=== PATIENT | male | born 1940 | race Asian ===

== ENCOUNTER 2017-07-31 09:29 | Inpatient (IN) | payer MEDICARE, OTHER ==
[~2017-07-31] VITALS: Ht 167.6 cm; Wt 74.2 kg
[2017-07-31] VITALS (63 sets, daily range): BP systolic 57–123; BP diastolic 47–81; PULSE 83–119; RESP 14–25; Ht 167.6 cm; Wt 74.2 kg
[2017-07-31] MEDS ORDERED: MIDODRINE 5 MG TAB PO ONE (10:30)
[2017-07-31 10:32] LABS: AADO2 Arterial 288.1 mmHg (7.0-24.0); Allen Test ACCEPTAB; Arterial Base Excess -5.5 mmol/L (-3.0-3); Arterial COHb 0.1 % (0.0-3.0); Arterial Fraction of Oxyhgb 88.5 % (93.0-99.0); Arterial HCO3 23.5 mmol/L (22.0-26.0); Arterial MetHb 0.5 % (0.0-1.5); Arterial Total Hemglobin 10.8 g/dl (12.0-18.0); MODE T-TUBE
[2017-07-31] MEDS ORDERED: NORepinephrine 8MG/250 ML (PMX 250 ML ONE (10:58)
[2017-07-31] MEDS: ALBUMIN HUMAN 25% 100 ML IV SCH ×2 (11:10→18:32)
[2017-07-31] MEDS ORDERED: DEXTROSE 50% 50 ML SYRINGE IV PRN (12:00)
[2017-07-31] MEDS ORDERED: GLUCOSE GEL 15 GRAM TUBE PO PRN ×2 (12:00)
[2017-07-31] MEDS ORDERED: GLUCOSE GEL 15 GRAM TUBE BUCCAL PRN (12:00)
[2017-07-31] MEDS ORDERED: GLUCAGON 1 MG INJ IM PRN (12:00)
--- NOTE | 2017-07-31 12:07 | CONS ---
DATE OF ADMISSION: 07/31/2017 DATE OF CONSULTATION: 07/31/2017 REASON FOR CONSULTATION: Ventilator management. Thank you, Dr. Bonner, for this consultation. HISTORY OF PRESENT ILLNESS: This is a 76-year-old Congolese gentleman transferred from [facility] to [facility] for ventilator weaning. This morning, transferred down from [facility] to [facility] Intensive Care Unit for hemodynamic instability. Here patient has been somnolent on cool aerosol and now requiring to be placed on mechanical ventilation. PAST MEDICAL HISTORY: 1. Coronary artery bypass graft surgery 2000, with subsequent PCI. 2. 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 3. Chronic renal insufficiency. 4. Dysphagia with G-tube. 5. Atrial fibrillation. 6. History of lung metastasis. 7. Prostate cancer. 8. Hepatitis B. 9. Brain aneurysm per chart. MEDICATIONS: Per chart. ALLERGIES: NONE. SOCIAL HISTORY: Ex-smoker. No alcohol. No history of drug use. FAMILY HISTORY: Noncontributory. REVIEW OF SYSTEMS: Twelve point review of systems currently unable to perform. PHYSICAL EXAMINATION: GENERAL APPEARANCE: On examination, chronically ill-appearing gentleman, eyes open, otherwise unresponsive. VITAL SIGNS: Currently afebrile. Temperature 98, pulse is 100, blood pressure 100/40, O2 sat 96 on FiO2 of 50 percent. NECK: Trach site clean. CARDIAC: Sounds S1, S2. No added sounds or murmurs. CHEST: Diminished air entry bilaterally. ABDOMEN: Soft, nontender. No guarding or rebound. EXTREMITIES: No cyanosis, clubbing or edema. NEUROLOGIC: Unable to assess. LABORATORY: ABG: pH 7.17, pCO2 of 65, PO2 of 68. White count was 21.1, hemoglobin 9.5, platelets of 169. BUN 94, creatinine 1.76. Lactic acid 2.3, AST 147, ALT 106, alk phos 502. IMPRESSION: 1. Severe sepsis. 2. Vent-dependent respiratory failure. 3. Hypoxemic hypercapnic respiratory failure. 4. Chronic encephalopathy. 5. History of right pleural effusion, status post thoracentesis. 6. History of lung cancer. 7. History of chordoma, status post resection. PLAN: 1. Continue mechanical ventilation. We will repeat arterial blood gas on current settings. 2. Continue broad-spectrum antibiotics. 3. Palliative care consult as overall prognosis extremely poor, as is quality of life. 4. DVT and GI prophylaxis. Dictated By: Gurwinder Andujar MD /filiberto/humberto /Document#: [id number]
[2017-07-31] MEDS: INSULIN ASPART [NOVOLOG] 3 ML PEN SC SCH ×3 (13:00→21:00)
[2017-07-31 13:29] LABS: ABNORMAL IP MESSAGE 1; BASOPHILS % 0.2 % (0.0-2.0); HEMATOCRIT 29.3 % (42.0-52.0); HEMOGLOBIN 8.7 g/dl (14.0-18.0); LYMPHOCYTES # 0.2 10^3/ul (0.8-2.9); LYMPHOCYTES % 0.7 % (15.0-51.0); MEAN CORPUSCULAR HEMOGLOBIN 24.6 pg (29.0-33.0); MEAN CORPUSCULAR HGB CONC 29.7 g/dl (32.0-37.0); MEAN CORPUSCULAR VOLUME 82.8 fl (82.0-101.0); MEAN PLATELET VOLUME 9.9 fl (7.4-10.4); MONOCYTES % 8.4 % (0.0-11.0); NEUTROPHILS % 88.2 % (39.0-77.0); NUCLEATED RED BLOOD CELLS% 8.4 /100WBC (0.0-0.0); PLATELET COUNT 160 10^3/UL (140-415); POSITIVE DIFF @See below; RED BLOOD COUNT 3.54 10^6/ul (4.70-6.10); RED CELL DISTRIBUTION WIDTH 19.4 % (11.5-14.5); WHITE BLOOD COUNT 23.3 10^3/ul (4.8-10.8)
--- NOTE | 2017-07-31 14:07 | HP ---
Date/Time of Note Date/Time of Note DATE: 07/31/17 TIME: 12:36 Assessment/Plan VTE Prophylaxis VTE Prophylaxis Intervention: other Lines/Catheters IV C[facility]ter Type (from [facility]): Peripheral IV Assessment/Plan Assessment/Plan - Septic shock sec to Severe sepsis. - per ID -Dr Nichols notified - Vent-dependent respiratory failure. - per pulmonary- Dr Andujar notified - Palliative care consult as overall prognosis extremely poor, as is quality of life. - Dr Yen notified - Hypoxemic hypercapnic respiratory failure. - Renal failure, on HD - Nephrology notified - Paroxysmal afib - Cardiology notified -. Chronic encephalopathy. - History of right pleural effusion, status post thoracentesis. - History of lung cancer. - History of chordoma, status post resection. PLAN: - Admit to ICU - Continue mechanical ventilation. We will repeat arterial blood gas on current settings. - Continue broad-spectrum antibiotics. - DVT and GI prophylaxis. HPI/ROS Admit Date/Time Admit Date/Time Jul 31, 2017 at 09:58 ROS Subjective hx not possible: pt critical status Exam/Review of Systems Vital Signs Vitals Vital Signs Date Time Temp Pulse Resp B/P Pulse Ox O2 Delivery O2 Flow Rate FiO2 07/31/17 11:40 97.3 94 14 89/68 95 Mechanical Ventilator 07/31/17 10:42 50 Exam Constitutional: frail, non-verbal Respiratory: diminished breath sounds Gastrointestinal: soft Musculoskeletal: muscle weakness Neurological: unresponsive Medications Medications Current Medications Albumin Human 100 ml @ 100 mls/hr Q8H IV Last administered on 07/31/17t 11:10; Admin Dose 100 MLS/HR; Start 07/31/17 at 10:30; Stop 08/01/17 at 03:29 Norepinephrine (Levophed) 250 ml @ 1.875 mls/ hr TITRATE IV ; Start 07/31/17 at 11:00 Insulin Aspart (Novolog Insulin Pen) NOVOLOG *MILD* ALGORI... Q4 SC ; Start 07/31 at 13:00 Miscellaneous Information 1 ea NOTE XX ; Start 07/31/17 at 12:00 Glucose (Glutose) 15 gm Q15M PRN PO DECREASED GLUCOSE; Start 07/31/17 at 12:00 Glucose (Glutose) 22.5 gm Q15M PRN PO DECREASED GLUCOSE; Start 07/31/17 at 12:00 Dextrose (D50w Syringe) 25 ml Q15M PRN IV DECREASED GLUCOSE; Start 07/31/17 at 12:00 Dextrose (D50w Syringe) 50 ml Q15M PRN IV DECREASED GLUCOSE Last administered on 07/31/17t 11:47; Admin Dose 50 ML; Start 07/31/17 at 12:00 Glucagon (Glucagen) 1 mg Q15M PRN IM DECREASED GLUCOSE; Start 07/31/17 at 12:00 Glucose (Glutose) 15 gm Q15M PRN BUCCAL DECREASED GLUCOSE; Start 07/31/17 at 12: 00 SEGUNDO MOLINA Jul 31, 2017 12:46
[2017-07-31] MEDS: NORepinephrine 8MG/250 ML (PMX 250 ML IV SCH ×2 (15:18→22:06)
--- NOTE | 2017-07-31 15:37 | PN ---
DATE: 07/31/2017 SUBJECTIVE DATA: The patient was transferred to ICU from [place] secondary to septic shock. Currently on Levophed drip. Obtunded, in no distress. Vital Signs: Temperature 97.3, pulse 94, respirations 14, blood pressure 89/68, saturation 95 on vent. WBC today 21.1, H and H 9.5 and 31.4, platelets 169, BUN 94, creatinine 1.76, lactic acid 2.3. MICROBIOLOGY: Urine culture on July 22 was negative. Stool for C. difficile on July 24 came back negative. Previous urine culture on July 15 grew Acinetobacter baumannii and Pseudomonas aeruginosa. INDWELLINGS: Trach, PEG, right femoral Brad catheter with a pigtail. DIAGNOSTICS: Chest x-ray this morning revealed worsening CHF, superimposed pneumonia cannot being excluded. PHYSICAL EXAMINATION: GENERAL: This is a fragile, chronically ill appearing, elderly man, who is obtunded in no distress. HEENT: Head atraumatic, normocephalic. Sclerae anicteric. Buccal mucosa dry. NECK: Supple. Tracheostomy present. CHEST: Rise symmetrical. Breath sounds diminished at the bases. HEART: S1, S2. ABDOMEN: Soft, bowel sounds hypoactive. EXTREMITIES: Cyanotic, mottled SKIN: Again mottled and cyanotic. ASSESSMENT: 1. Severe sepsis with shock. 2. Acute on chronic respiratory failure. 3. Fluid overload and possible healthcare associated pneumonia. 4. Acute on chronic kidney disease. 5. Encephalopathy. 6. Dysphagia. PLAN: We are going to start the patient on IV vancomycin and meropenem. Send blood and urine cultures. Obtain sputum culture. Continue present care. Follow recommendations of consultants. Prognosis is guarded. The patient is DNR status. Dictated By: Barrett Green NP /filiberto/andres /Document#: [id number]
[2017-07-31 15:49] LABS: AADO2 Arterial 208.4 mmHg (7.0-24.0); Allen Test ACCEPTAB; Arterial Base Excess -5.2 mmol/L (-3.0-3); Arterial COHb 0 % (0.0-3.0); Arterial HCO3 20.5 mmol/L (22.0-26.0); Arterial MetHb 0.4 % (0.0-1.5); Arterial Total Hemglobin 9.8 g/dl (12.0-18.0); MODE VENT - AC
--- NOTE | 2017-07-31 16:08 | CONS ---
Date/Time of Note Date/Time of Note DATE: 07/31/17 TIME: 16:02 Assessment/Plan Assessment/Plan Additional Assessment/Plan Patient with patient's her children are out of town. She is prepared for the fact that he is dying, she has been told this before. Her support system is her children but unfortunately they are not available and it does not sound like they are able to travel. Has a strong believe that he will never leave her even after his . She gave me a long history of their life together, that he is a very talented individual living in a good father. At this time she made very clear she does not want to have cardiopulmonary resuscitation but she does not want comfort measures at this time. We will continue to support her decision and follow his clinical condition, I will speak to her later today or tomorrow morning. Consultation Date/Type/Reason Admit Date/Time Jul 31, 2017 at 09:58 Reason for Consultation 76-year-old gentleman who was transferred to the intensive care unit [facility] with deteriorating mental status, hypotension hypoxic respiratory failure the patient was a resident of [facility] until he became unstable and was transferred to intensive care unit. She is chronically trached and pegd. From the medical records taste from patient's chart he also has history of lung nodules presumed to be lung cancer, history of prostate cancer and encephalopathy. His information is taken from patient's medical records as well as speaking to his . Exam/Review of Systems Vital Signs Vitals Vital Signs Date Time Temp Pulse Resp B/P Pulse Ox O2 Delivery O2 Flow Rate FiO2 07/31/17 14:45 95 16 95/75 100 07/31/17 14:00 Mechanical Ventilator 07/31/17 13:12 50 07/31/17 11:40 97.3 Exam Constitutional: non-verbal Neurological: other (Not communicative no spontaneous movements nonresponsive to any verbal or tactile stimulation), unresponsive Results Result Diagram: 07/31/17 1213 Results 24 hrs Laboratory Tests Test 07/31/17 10:23 07/31/17 11:56 07/31/17 12:13 07/31/17 12:34 Blood Gas Specimen Source Blood arterial Arterial Blood Date Drawn 07/31/2017 10:20:42 AM Arterial Blood pH (Temp corrected) 7.176 *L Arterial Blood pCO2 (Temp correct) 65.1 H Arterial Blood pO2 (Temp corrected) 68.1 L Arterial Blood HCO3 23.5 Arterial Blood Base Excess -5.5 L Arterial Blood Oxygen Saturation 89.0 L Cholo Test ACCEPTAB Arterial Blood Gas Puncture Site Left Radial Arterial Blood Carboxyhemoglobin 0.1 Arterial Blood Methemoglobin 0.5 Blood Gas A-a O2 Differential 288.1 H Oxyhemoglobin Percent 88.5 L Total Hemoglobin 10.8 L Blood Gas Temperature 37.0 Blood Gas Modality T-TUBE FiO2 60.0 Blood Gas Critical Value Read Back DR ANGULO Blood Gas Notified Whom RUSSD Blood Gas Notified Time 07/31/2017 10:32:19 AM Bedside Glucose 142 129 White Blood Count 23.3 H Red Blood Count 3.54 L Hemoglobin 8.7 L Hematocrit 29.3 L Mean Corpuscular Volume 82.8 Mean Corpuscular Hemoglobin 24.6 L Mean Corpuscular Hemoglobin Concent 29.7 L Red Cell Distribution Width 19.4 H Platelet Count 160 Mean Platelet Volume 9.9 Neutrophils % 88.2 H Lymphocytes % 0.7 L Monocytes % 8.4 Eosinophils % 0.0 Basophils % 0.2 Nucleated Red Blood Cells % 8.4 H Neutrophils # (Manual) 20.6 H Lymphocytes # 0.2 L Monocytes # 2.0 H Eosinophils # 0.0 Basophils # 0.0 Nucleated Red Blood Cells # 2.0 H Test 07/31/17 13:53 07/31/17 15:00 Bedside Glucose 102 Blood Gas Specimen Source Blood arterial Arterial Blood Date Drawn 07/31/2017 3:38:37 PM Arterial Blood pH (Temp corrected) 7.322 L Arterial Blood pCO2 (Temp correct) 40.5 Arterial Blood pO2 (Temp corrected) 102.5 H Arterial Blood HCO3 20.5 L Arterial Blood Base Excess -5.2 L Arterial Blood Oxygen Saturation 97.4 Cholo Test ACCEPTAB Arterial Blood Gas Puncture Site Right Radial Arterial Blood Carboxyhemoglobin 0 Arterial Blood Methemoglobin 0.4 Blood Gas A-a O2 Differential 208.4 H Oxyhemoglobin Percent 97.0 Total Hemoglobin 9.8 L Blood Gas Temperature 37.0 Blood Gas Respiration Rate 14.0 Blood Gas Actual Respiration Rate 15 Blood Gas Modality VENT - AC FiO2 50.0 Blood Gas Tidal Volume 500.0 Blood Gas Low PEEP Setting 5.0 Blood Gas Notified Whom Shahzad Blood Gas Notified Time 07/31/2017 3:48:45 PM Medications Medications Current Medications Albumin Human 100 ml @ 100 mls/hr Q8H IV Last administered on 07/31/17 11:10; Admin Dose 100 MLS/HR; Start 07/31/17 at 10:30; Stop 08/01/17 at 03:29 Norepinephrine (Levophed) 250 ml @ 1.875 mls/ hr TITRATE IV Last administered on 07/31/17 15:18; Admin Dose 22.5 MLS/HR; Start 07/31/17 at 11:00 Insulin Aspart (Novolog Insulin Pen) NOVOLOG *MILD* ALGORI... Q4 SC ; Start 07/31 at 13:00 Miscellaneous Information 1 ea NOTE XX ; Start 07/31/17 at 12:00 Glucose (Glutose) 15 gm Q15M PRN PO DECREASED GLUCOSE; Start 07/31/17 at 12:00 Glucose (Glutose) 22.5 gm Q15M PRN PO DECREASED GLUCOSE; Start 07/31/17 at 12:00 Dextrose (D50w Syringe) 25 ml Q15M PRN IV DECREASED GLUCOSE; Start 07/31/17 at 12:00 Dextrose (D50w Syringe) 50 ml Q15M PRN IV DECREASED GLUCOSE Last administered on 07/31/17 11:47; Admin Dose 50 ML; Start 07/31/17 at 12:00 Glucagon (Glucagen) 1 mg Q15M PRN IM DECREASED GLUCOSE; Start 07/31/17 at 12:00 Glucose (Glutose) 15 gm Q15M PRN BUCCAL DECREASED GLUCOSE; Start 07/31/17 at 12: 00 KASIA ACEVEDO Jul 31, 2017 16:08
[2017-07-31] MEDS ORDERED: ERTA1VIA IV (16:45)
[2017-07-31] MEDS ORDERED: NEPH PEG (16:56)
[2017-07-31] MEDS ORDERED: LEVEM SC (16:56)
[2017-07-31] MEDS ORDERED: VANC1PLA9 IV (16:56)
[2017-07-31] MEDS ORDERED: HYDR-3670 IV (16:56)
[2017-07-31] MEDS ORDERED: LANS30CA PO (16:56)
[2017-07-31] MEDS ORDERED: SSD1C20 TOP (16:56)
[2017-07-31] MEDS ORDERED: CHLO473M4 MM (16:56)
[2017-07-31] MEDS ORDERED: HYDR-906 PO (16:56)
[2017-07-31] MEDS ORDERED: [UNRECOGNIZED DRUG - CODE] PEG (16:56)
[2017-07-31] MEDS ORDERED: NYST1POW22 TOPICAL (16:56)
[2017-07-31] MEDS ORDERED: LINA5TAB PEG (16:56)
[2017-07-31] MEDS ORDERED: BALS60OI TOP (16:56)
[2017-07-31] MEDS ORDERED: MORP1DIS4 IV (16:56)
[2017-07-31] MEDS ORDERED: LEVA0.6320 INHALATION (16:56)
[2017-07-31] MEDS ORDERED: LIDO700A6 TP (16:56)
[2017-07-31] MEDS ORDERED: METO-448 PEG (16:56)
--- NOTE | 2017-07-31 17:17 | CONS ---
Date/Time of Note Date/Time of Note DATE: 07/31/17 TIME: 17:09 Assessment/Plan Assessment/Plan Problems: (1) Type 2 diabetes mellitus without complications Status: Chronic Comment: At this time patient is n.p.o. status. He may also have sepsis. Because of these things he is not appearing to require his chronic twice daily insulin. He is currently maintaining his blood glucose levels in the goal range without it. He is written for correctional insulin only. At this time I am going to change my follow-up to as needed only. I will check levels daily. If blood glucose levels rise then will return to follow the patient and resume a twice daily insulin schedule. Alternatively as the patient is ill in the ICU patient may go on an insulin drip intravenously if his blood glucose elevates. Will follow peripherally for now. 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 Patient has been undergoing treatment at [facility]. I have been involved in his case to manage his blood glucose levels throughout his last 2 stays there. Blood glucose was relatively well controlled with some mild highs recently. This a.m. patient became unstable with low blood pressure and low glucose. Twice daily Levemir was held this morning and patient was transferred to [facility] intensive care unit for ongoing care and IV pressor therapy. Subjective hx not possible: pt non-verbal, pt critical status Past Medical History Medical History: cancer (prostate, chordoma), diabetes, high cholesterol, hypertension, renal disease Past Surgical History Past Surgical Hx: other (Tracheostomy and percutaneous gastrostomy tubing) Family History Significant Family History: no pertinent family hx Social History Alcohol Use: none Smoking Status: Never smoker Drug Use: none Exam/Review of Systems Vital Signs Vitals Vital Signs Date Time Temp Pulse Resp B/P Pulse Ox O2 Delivery O2 Flow Rate FiO2 07/31/17 15:43 109 15 100 50 07/31/17 14:45 95/75 07/31/17 14:00 Mechanical Ventilator 07/31/17 11:40 97.3 Exam Constitutional: frail, No alert Psych: nl mood/affect, no complaints Eyes: EOMI, PERRL, nl conjunctiva, nl lids, nl sclera ENMT: mucosa pink and moist, nl external ears & nose Neck: No other (Tracheostomy on vent) Respiratory: clear to auscultation, normal air movement Cardiovascular: irregular rhythm (And tachycardic), nl pulses, No edema, No murmurs/extra sounds, No regular rate and rhythm, No rub Gastrointestinal: bowel sounds, nl liver, spleen, non-tender, soft, No mass, No rebound or guarding Musculoskeletal: nl extremities to inspection Extremities: No clubbing, No cyanosis, No edema Neurological: unresponsive Additional Comments Bedside Glucose - 72 Hours Test 07/31/17 11:56 07/31/17 12:34 07/31/17 13:53 Bedside Glucose 142mg/dL (70-220) 129mg/dL (70-220) 102mg/dL (70-220) Results Result Diagram: 07/31/17 1213 Results 24 hrs Laboratory Tests Test 07/31/17 10:23 07/31/17 11:56 07/31/17 12:13 07/31/17 12:34 Blood Gas Specimen Source Blood arterial Arterial Blood Date Drawn 07/31/2017 10:20:42 AM Arterial Blood pH (Temp corrected) 7.176 *L Arterial Blood pCO2 (Temp correct) 65.1 H Arterial Blood pO2 (Temp corrected) 68.1 L Arterial Blood HCO3 23.5 Arterial Blood Base Excess -5.5 L Arterial Blood Oxygen Saturation 89.0 L Cholo Test ACCEPTAB Arterial Blood Gas Puncture Site Left Radial Arterial Blood Carboxyhemoglobin 0.1 Arterial Blood Methemoglobin 0.5 Blood Gas A-a O2 Differential 288.1 H Oxyhemoglobin Percent 88.5 L Total Hemoglobin 10.8 L Blood Gas Temperature 37.0 Blood Gas Modality T-TUBE FiO2 60.0 Blood Gas Critical Value Read Back DR ANGULO Blood Gas Notified Whom RAMU Blood Gas Notified Time 07/31/2017 10:32:19 AM Bedside Glucose 142 129 White Blood Count 23.3 H Red Blood Count 3.54 L Hemoglobin 8.7 L Hematocrit 29.3 L Mean Corpuscular Volume 82.8 Mean Corpuscular Hemoglobin 24.6 L Mean Corpuscular Hemoglobin Concent 29.7 L Red Cell Distribution Width 19.4 H Platelet Count 160 Mean Platelet Volume 9.9 Neutrophils % 88.2 H Lymphocytes % 0.7 L Monocytes % 8.4 Eosinophils % 0.0 Basophils % 0.2 Nucleated Red Blood Cells % 8.4 H Neutrophils # (Manual) 20.6 H Lymphocytes # 0.2 L Monocytes # 2.0 H Eosinophils # 0.0 Basophils # 0.0 Nucleated Red Blood Cells # 2.0 H Test 07/31/17 13:53 07/31/17 15:00 Bedside Glucose 102 Blood Gas Specimen Source Blood arterial Arterial Blood Date Drawn 07/31/2017 3:38:37 PM Arterial Blood pH (Temp corrected) 7.322 L Arterial Blood pCO2 (Temp correct) 40.5 Arterial Blood pO2 (Temp corrected) 102.5 H Arterial Blood HCO3 20.5 L Arterial Blood Base Excess -5.2 L Arterial Blood Oxygen Saturation 97.4 Cholo Test ACCEPTAB Arterial Blood Gas Puncture Site Right Radial Arterial Blood Carboxyhemoglobin 0 Arterial Blood Methemoglobin 0.4 Blood Gas A-a O2 Differential 208.4 H Oxyhemoglobin Percent 97.0 Total Hemoglobin 9.8 L Blood Gas Temperature 37.0 Blood Gas Respiration Rate 14.0 Blood Gas Actual Respiration Rate 15 Blood Gas Modality VENT - AC FiO2 50.0 Blood Gas Tidal Volume 500.0 Blood Gas Low PEEP Setting 5.0 Blood Gas Notified Whom M.D. Blood Gas Notified Time 07/31/2017 3:48:45 PM Medications Medications Current Medications Albumin Human 100 ml @ 100 mls/hr Q8H IV Last administered on 07/31/17 11:10; Admin Dose 100 MLS/HR; Start 07/31/17 at 10:30; Stop 08/01/17 at 03:29 Norepinephrine (Levophed) 250 ml @ 1.875 mls/ hr TITRATE IV Last administered on 07/31/17 15:18; Admin Dose 22.5 MLS/HR; Start 07/31/17 at 11:00 Insulin Aspart (Novolog Insulin Pen) NOVOLOG *MILD* ALGORI... Q4 SC ; Start 07/31 at 13:00 Miscellaneous Information 1 ea NOTE XX ; Start 07/31/17 at 12:00 Glucose (Glutose) 15 gm Q15M PRN PO DECREASED GLUCOSE; Start 07/31/17 at 12:00 Glucose (Glutose) 22.5 gm Q15M PRN PO DECREASED GLUCOSE; Start 07/31/17 at 12:00 Dextrose (D50w Syringe) 25 ml Q15M PRN IV DECREASED GLUCOSE; Start 07/31/17 at 12:00 Dextrose (D50w Syringe) 50 ml Q15M PRN IV DECREASED GLUCOSE Last administered on 07/31/17t 11:47; Admin Dose 50 ML; Start 07/31/17 at 12:00 Glucagon (Glucagen) 1 mg Q15M PRN IM DECREASED GLUCOSE; Start 07/31/17 at 12:00 Glucose (Glutose) 15 gm Q15M PRN BUCCAL DECREASED GLUCOSE; Start 07/31/17 at 12: 00 JUAN FRANCISCO HILLMAN MD Jul 31, 2017 17:17
[2017-07-31] MEDS ORDERED: VANCOMYCIN IV PER PHARMACY XX SCH (17:30)
--- NOTE | 2017-07-31 18:50 | CONS ---
Date/Time of Note Date/Time of Note DATE: 07/31/17 TIME: 18:34 Assessment/Plan Assessment/Plan Chief Complaint/Hosp Course 1. septic shock 2. hypoxemic resp failure s/p trach, vent dependent. 3. P afib; currently in NSR. 4. HX NSVT 5 LUIS FELIPE on CKD: S/P HD 6. CAD 7. HX PCI 8. HX CABG 9. ANEMIA 10 HX GI BLEED AND PUD 11. recurrent pleural effusion. 12. encephalopahty Recommendations: Broad-spectrum antibiotics to be continued and will be managed by ID team. We will continue to monitor on telemetry closely. At this point he is too hypotensive to tolerate any beta blockers. DIGOXIN will be given as very low- dose if needed Hemodialysis as per renal team. We will continue with the Levophed drip. Off of aspirin or Coumadin or high anticoagulant due to history of GI bleed at this point. PPI Vent support will be continued and managed as per pulmonary team. Continue with the trach care. Continue with ICU care. CODE STATUS has been discussed with the family including and has been changed to DNR at this point. More than 42 minutes of critical care time was spent in management and treatment of this patient excluding any procedures. Thank you for his referral. We will continue to follow along with you. ARMANDO DAVIDSON MD [facility] Problems: Consultation Date/Type/Reason Admit Date/Time Jul 31, 2017 at 09:58 Date of Consultation: Jul 31, 2017 Type of Consultation: Cardiology/ Critical care Reason for Consultation shock, P afib. Referring Provider: SEGUNDO MOLINA of Present Illness CC: shock. HPI: Dear Dr Bonner and Mahi thank you for this consultation, History was obtained mostly from extensive review of the old chart discussion with physicians and staff and discussion with the patient and . Patient also very well known to me from previous admission to the [facility]. This is an unfortunate 76-year-old gentleman with multiple complicated medical history including history of coronary artery disease who was transferred from [facility] to ICU because of the low blood pressure shock. Patient is currently status post tracheostomy on the vent and is on Levophed drip. Over the past few days patient has been progressively getting worse and hypotensive. He has become very hypotensive yesterday and today finally to be transferred to ICU on Levophed drip. Currently he is on 12 mics of Levophed drip. Patient at this point is lethargic is unable to provide any history to me. Allergies to contrast dye penicillin Neupogen reportedly. Medications: As per medical reconciliation sheet which was personally reviewed. Past medical history: 1. History of extensive coronary artery disease including coronary artery bypass grafting October 2001. History of PCI a few years ago. 2. 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 He has also undergone subtotal resection of the anterior cervical chordoma on May 04. At that time he has had a complicated course including intubation and reintubation had to be finally tracheostomy done in May 14, 2017. 3. History of renal failure acute on chronic currently on dialysis 4. History of severe anemia and GI bleed due to peptic ulcer disease. Is currently off of any anticoagulant relation or antiplatelet this biopsied atrial fibrillation and coronary artery disease because of that. Also family has been refusing it is felt. 5. History of paroxysmal atrial fibrillation. Also he has had multiple doses of nonsustained VT. 6. Anemia. 7. History of prostate cancer reprieve and prostatectomy 8. History hepatitis B positive 9. Hypoxemic respiratory failure with tracheostomy now dysphagia status post G- tube placement 10. History of brain aneurysm embolization per review of the old chart. 11. History of recurrent pleural effusion status post chest tube placed pain. Surgical history: tracheostomy. G-tube placement. Coronary bypass graft PCI Surgery Multiple surgeries for cervical chordoma resection Family history: Patient father had heart disease detail is not clear though. Social history: Patient has quit smoking many years ago. He does not drink use any drugs. 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 ROS: Patient has been in the hospital over the past few months. Otherwise see above Psychological: nl mood/affect, no complaints Past Medical History Medical History: cancer (prostate, chordoma), diabetes, high cholesterol, hypertension, renal disease Past Surgical History Past Surgical Hx: other (Tracheostomy and percutaneous gastrostomy tubing) Social History Alcohol Use: none Smoking Status: Former smoker Drug Use: none Exam/Review of Systems Vital Signs Vitals Vital Signs Date Time Temp Pulse Resp B/P Pulse Ox O2 Delivery O2 Flow Rate FiO2 07/31/17 17:08 91 16 100 50 07/31/17 14:45 95/75 07/31/17 14:00 Mechanical Ventilator 07/31/17 11:40 97.3 Exam General: Cachectic gentleman status post tracheostomy on the vent. CV: Regular rate and rhythm with systolic murmur. HEENT: Cephalic atraumatic. Pupils are equal round. Neck: Status post tracheostomy. No stridors. Pulmonary: Bilateral rhonchi noted. No wheezing. GI: Soft status post PEG placement. No rebound or guarding. Extremities: Severe lower extremity edema. NEURO: Lethargic and drowsy at this point. Is able to move all of his extremities though. Psych: Appear to be depressed mood but very pleasant Derm: Positive sacral decubitus ulcer. echo 06/26/17 was personally reviewed; 1. Normal left ventricular systolic function. Normal left ventricular cavity size. Moderate concentric left ventricular hypertrophy. Ejection fraction is visually estimated at 55 %. Abnormal Diastolic Function. 2. Severe right ventricular systolic dysfunction. Moderate enlargement of right ventricle. 3. There is moderate enlargement of right atrium. 4. Normal appearance and function of the mitral valve with trace physiologic regurgitation. 5. Normal appearance of the aortic valve. No significant aortic stenosis or insufficiency. 6. Normal appearance of the tricuspid valve. Estimated peak PA systolic pressure 56 mmHg. There is mild tricuspid regurgitation. 7. Inferior vena cava without respiratory collapse, however, patient on ventilator. Results Result Diagram: 07/31/17 1213 Results 24 hrs Laboratory Tests Test 07/31/17 10:23 07/31/17 11:56 07/31/17 12:13 07/31/17 12:34 Blood Gas Specimen Source Blood arterial Arterial Blood Date Drawn 07/31/2017 10:20:42 AM Arterial Blood pH (Temp corrected) 7.176 *L Arterial Blood pCO2 (Temp correct) 65.1 H Arterial Blood pO2 (Temp corrected) 68.1 L Arterial Blood HCO3 23.5 Arterial Blood Base Excess -5.5 L Arterial Blood Oxygen Saturation 89.0 L Cholo Test ACCEPTAB Arterial Blood Gas Puncture Site Left Radial Arterial Blood Carboxyhemoglobin 0.1 Arterial Blood Methemoglobin 0.5 Blood Gas A-a O2 Differential 288.1 H Oxyhemoglobin Percent 88.5 L Total Hemoglobin 10.8 L Blood Gas Temperature 37.0 Blood Gas Modality T-TUBE FiO2 60.0 Blood Gas Critical Value Read Back DR ANGULO Blood Gas Notified Whom RAMU Blood Gas Notified Time 07/31/2017 10:32:19 AM Bedside Glucose 142 129 White Blood Count 23.3 H Red Blood Count 3.54 L Hemoglobin 8.7 L Hematocrit 29.3 L Mean Corpuscular Volume 82.8 Mean Corpuscular Hemoglobin 24.6 L Mean Corpuscular Hemoglobin Concent 29.7 L Red Cell Distribution Width 19.4 H Platelet Count 160 Mean Platelet Volume 9.9 Neutrophils % 88.2 H Lymphocytes % 0.7 L Monocytes % 8.4 Eosinophils % 0.0 Basophils % 0.2 Nucleated Red Blood Cells % 8.4 H Neutrophils # (Manual) 20.6 H Lymphocytes # 0.2 L Monocytes # 2.0 H Eosinophils # 0.0 Basophils # 0.0 Nucleated Red Blood Cells # 2.0 H Test 07/31/17 13:53 07/31/17 15:00 Bedside Glucose 102 Blood Gas Specimen Source Blood arterial Arterial Blood Date Drawn 07/31/2017 3:38:37 PM Arterial Blood pH (Temp corrected) 7.322 L Arterial Blood pCO2 (Temp correct) 40.5 Arterial Blood pO2 (Temp corrected) 102.5 H Arterial Blood HCO3 20.5 L Arterial Blood Base Excess -5.2 L Arterial Blood Oxygen Saturation 97.4 Cholo Test ACCEPTAB Arterial Blood Gas Puncture Site Right Radial Arterial Blood Carboxyhemoglobin 0 Arterial Blood Methemoglobin 0.4 Blood Gas A-a O2 Differential 208.4 H Oxyhemoglobin Percent 97.0 Total Hemoglobin 9.8 L Blood Gas Temperature 37.0 Blood Gas Respiration Rate 14.0 Blood Gas Actual Respiration Rate 15 Blood Gas Modality VENT - AC FiO2 50.0 Blood Gas Tidal Volume 500.0 Blood Gas Low PEEP Setting 5.0 Blood Gas Notified Whom Shahzad Blood Gas Notified Time 07/31/2017 3:48:45 PM Medications Medications Current Medications Albumin Human 100 ml @ 100 mls/hr Q8H IV Last administered on 07/31/17 18:32; Admin Dose 100 MLS/HR; Start 07/31/17 at 10:30; Stop 08/01/17 at 03:29 Norepinephrine (Levophed) 250 ml @ 1.875 mls/ hr TITRATE IV Last administered on 07/31/17 15:18; Admin Dose 22.5 MLS/HR; Start 07/31/17 at 11:00 Insulin Aspart (Novolog Insulin Pen) NOVOLOG *MILD* ALGORI... Q4 SC ; Start 07/31 at 13:00 Miscellaneous Information 1 ea NOTE XX ; Start 07/31/17 at 12:00 Glucose (Glutose) 15 gm Q15M PRN PO DECREASED GLUCOSE; Start 07/31/17 at 12:00 Glucose (Glutose) 22.5 gm Q15M PRN PO DECREASED GLUCOSE; Start 07/31/17 at 12:00 Dextrose (D50w Syringe) 25 ml Q15M PRN IV DECREASED GLUCOSE; Start 07/31/17 at 12:00 Dextrose (D50w Syringe) 50 ml Q15M PRN IV DECREASED GLUCOSE Last administered on 07/31/17t 11:47; Admin Dose 50 ML; Start 07/31/17 at 12:00 Glucagon (Glucagen) 1 mg Q15M PRN IM DECREASED GLUCOSE; Start 07/31/17 at 12:00 Glucose 15 gm 15 gm Q15M PRN BUCCAL DECREASED GLUCOSE; Start 07/31/17 at 12:00 Meropenem/Sodium Chloride (Merrem 500mg/50 ml(Pmx)) 50 ml @ 100 mls/hr Q12 IVPB ; Start 07/31/17 at 21:00 ARMANDO DAVIDSON MD Jul 31, 2017 18:45
[2017-07-31] MEDS: DEXTROSE 50% 50 ML SYRINGE IV PRN (21:27)
[2017-07-31] MEDS: MEROPENEM 500MG/50 ML (PMX) 50 ML IVPB SCH (21:27)
--- NOTE | 2017-07-31 21:27 | CONS ---
Date/Time of Note Date/Time of Note DATE: 07/31/17 TIME: 20:27 Assessment/Plan Assessment/Plan Additional Assessment/Plan 1. acute on chronic renal failure, started on HD 2. septic shock 3. CHF 3. Pleural effusion Right moderate Pleural effusion 4. Cardiomyopathy 5, Hypertension 6. Hyperlipidemia Plan : levophed for BP support IV abx as per ID Endocrinology following I will give albumin 25% 100ml IV x 1 , midodrine 5 mg po x 1 dose for bP support Thanks for consultation, will follow up Consultation Date/Type/Reason Admit Date/Time Jul 31, 2017 at 09:58 Date of Consultation: Jul 31, 2017 Type of Consultation: NEPHROLOGY Reason for Consultation acute on chronic renal failure, progressively worsened started on HD, septic shock Referring Provider: GUSTAVO MCCARTY MD Hx of Present Illness 76-year-old unfortunate Faro[place] male with a history of type 2 diabetes mellitus , hypertension, prostate cancer, recently diagnosed with malignant chordoma of the cervical spine resulting in respiratory failure with chronic tracheostomy usage and dysphagia requiring gastrostomy tube feeding, and chronic kidney disease recently end-stage. Patient has been undergoing treatment at [facility]. He was started on HD fur acute on chronic renal failure, gradually worsening. he becomes hypotensive today, his HD was cancelled for today and he gets transferred to [facility] ICU unit for further care. Subjective hx not possible: pt non-verbal Psychological: nl mood/affect, no complaints Past Medical History Medical History: cancer (prostate, chordoma), diabetes, high cholesterol, hypertension, renal disease Past Surgical History Past Surgical Hx: other (Tracheostomy and percutaneous gastrostomy tubing) Family History Significant Family History: no pertinent family hx Social History Alcohol Use: none Smoking Status: Former smoker Drug Use: none Exam/Review of Systems Vital Signs Vitals Vital Signs Date Time Temp Pulse Resp B/P Pulse Ox O2 Delivery O2 Flow Rate FiO2 07/31/17 18:30 89 18 115/69 100 07/31/17 18:00 Mechanical Ventilator 07/31/17 17:08 50 07/31/17 16:00 97.8 Exam Constitutional: non-verbal Head: normocephalic ENMT: other (+ tracheostomy on ventilator ) Neck: other (no JVD, no LAD ), supple Respiratory: congested cough, crackles/rales, diminished breath sounds, wheezing Cardiovascular: other (tachycardia), regular rate and rhythm Gastrointestinal: non-tender, other (G tube in place ), soft Musculoskeletal: muscle tone, muscle weakness, swelling Neurological: other Results Result Diagram: 07/31/17 1213 Results 24 hrs Laboratory Tests Test 07/31/17 10:23 07/31/17 11:56 07/31/17 12:13 07/31/17 12:34 Blood Gas Specimen Source Blood arterial Arterial Blood Date Drawn 07/31/2017 10:20:42 AM Arterial Blood pH (Temp corrected) 7.176 *L Arterial Blood pCO2 (Temp correct) 65.1 H Arterial Blood pO2 (Temp corrected) 68.1 L Arterial Blood HCO3 23.5 Arterial Blood Base Excess -5.5 L Arterial Blood Oxygen Saturation 89.0 L Cholo Test ACCEPTAB Arterial Blood Gas Puncture Site Left Radial Arterial Blood Carboxyhemoglobin 0.1 Arterial Blood Methemoglobin 0.5 Blood Gas A-a O2 Differential 288.1 H Oxyhemoglobin Percent 88.5 L Total Hemoglobin 10.8 L Blood Gas Temperature 37.0 Blood Gas Modality T-TUBE FiO2 60.0 Blood Gas Critical Value Read Back DR ANGULO Blood Gas Notified Whom JLD Blood Gas Notified Time 07/31/2017 10:32:19 AM Bedside Glucose 142 129 White Blood Count 23.3 H Red Blood Count 3.54 L Hemoglobin 8.7 L Hematocrit 29.3 L Mean Corpuscular Volume 82.8 Mean Corpuscular Hemoglobin 24.6 L Mean Corpuscular Hemoglobin Concent 29.7 L Red Cell Distribution Width 19.4 H Platelet Count 160 Mean Platelet Volume 9.9 Neutrophils % 88.2 H Lymphocytes % 0.7 L Monocytes % 8.4 Eosinophils % 0.0 Basophils % 0.2 Nucleated Red Blood Cells % 8.4 H Neutrophils # (Manual) 20.6 H Lymphocytes # 0.2 L Monocytes # 2.0 H Eosinophils # 0.0 Basophils # 0.0 Nucleated Red Blood Cells # 2.0 H Test 07/31/17 13:53 07/31/17 15:00 07/31/17 18:30 Bedside Glucose 102 86 Blood Gas Specimen Source Blood arterial Arterial Blood Date Drawn 07/31/2017 3:38:37 PM Arterial Blood pH (Temp corrected) 7.322 L Arterial Blood pCO2 (Temp correct) 40.5 Arterial Blood pO2 (Temp corrected) 102.5 H Arterial Blood HCO3 20.5 L Arterial Blood Base Excess -5.2 L Arterial Blood Oxygen Saturation 97.4 Cholo Test ACCEPTAB Arterial Blood Gas Puncture Site Right Radial Arterial Blood Carboxyhemoglobin 0 Arterial Blood Methemoglobin 0.4 Blood Gas A-a O2 Differential 208.4 H Oxyhemoglobin Percent 97.0 Total Hemoglobin 9.8 L Blood Gas Temperature 37.0 Blood Gas Respiration Rate 14.0 Blood Gas Actual Respiration Rate 15 Blood Gas Modality VENT - AC FiO2 50.0 Blood Gas Tidal Volume 500.0 Blood Gas Low PEEP Setting 5.0 Blood Gas Notified Whom M.D. Blood Gas Notified Time 07/31/2017 3:48:45 PM Medications Medications Current Medications Albumin Human 100 ml @ 100 mls/hr Q8H IV Last administered on 07/31/17 18:32; Admin Dose 100 MLS/HR; Start 07/31/17 at 10:30; Stop 08/01/17 at 03:29 Norepinephrine (Levophed) 250 ml @ 1.875 mls/ hr TITRATE IV Last administered on 07/31/17 15:18; Admin Dose 22.5 MLS/HR; Start 07/31/17 at 11:00 Insulin Aspart (Novolog Insulin Pen) NOVOLOG *MILD* ALGORI... Q4 SC ; Start 07/31 at 13:00 Miscellaneous Information 1 ea NOTE XX ; Start 07/31/17 at 12:00 Glucose (Glutose) 15 gm Q15M PRN PO DECREASED GLUCOSE; Start 07/31/17 at 12:00 Glucose (Glutose) 22.5 gm Q15M PRN PO DECREASED GLUCOSE; Start 07/31/17 at 12:00 Dextrose (D50w Syringe) 25 ml Q15M PRN IV DECREASED GLUCOSE; Start 07/31/17 at 12:00 Dextrose (D50w Syringe) 50 ml Q15M PRN IV DECREASED GLUCOSE Last administered on 07/31/17 11:47; Admin Dose 50 ML; Start 07/31/17 at 12:00 Glucagon (Glucagen) 1 mg Q15M PRN IM DECREASED GLUCOSE; Start 07/31/17 at 12:00 Glucose 15 gm 15 gm Q15M PRN BUCCAL DECREASED GLUCOSE; Start 07/31/17 at 12:00 Meropenem/Sodium Chloride (Merrem 500mg/50 ml(Pmx)) 50 ml @ 100 mls/hr Q12 IVPB ; Start 07/31/17 at 21:00 Pantoprazole (Protonix Tab) 40 mg DAILY@06 PO ; Start 08/01/17 at 06:00 MAXIM VILLAVICENCIO MD Jul 31, 2017 20:37
[2017-08-01] VITALS (100 sets, daily range): BP systolic 67–134; BP diastolic 42–103; PULSE 90–137; RESP 16–31
[2017-08-01] MEDS: INSULIN ASPART [NOVOLOG] 3 ML PEN SC SCH ×6 (01:00→21:00)
[2017-08-01] MEDS: DEXTROSE 50% 50 ML SYRINGE IV PRN ×2 (01:23→13:14)
[2017-08-01] MEDS: ALBUMIN HUMAN 25% 100 ML IV SCH (02:38)
[2017-08-01 04:53] LABS: ALBUMIN 3.3 g/dl (3.3-4.9); ALBUMIN/GLOBULIN RATIO 1.26; BILIRUBIN,DIRECT 1.3 mg/dl (0.00-0.20); BILIRUBIN,INDIRECT 0.5 mg/dl (0-1.1); BILIRUBIN,TOTAL 1.8 mg/dl (0.2-1.3); CALCIUM 7.9 mg/dl (8.4-10.2); CREATININE 2.33 mg/dl (0.61-1.24); POTASSIUM 4.7 mmol/L (3.5-5.1); TOTAL PROTEIN 5.9 g/dl (6.1-8.1)
[2017-08-01] MEDS: PANTOPRAZOLE (EC) 40 MG TAB PO SCH (05:32)
--- NOTE | 2017-08-01 07:39 | RADRPT ---
PROCEDURE: XR Chest. CLINICAL INDICATION: Shortness of breath. TECHNIQUE: Single frontal view. COMPARISON: 07/31/2017. FINDINGS: The tracheostomy tube remains in satisfactory position. Pulmonary edema is unchanged. The heart is enlarged. There is calcification in the aorta consistent with atherosclerosis. There ar e sternal wires and mediastinal clips. There is a moderate right pleural effusion and small left pleural effusion, unchanged. There is no pneumothorax. IMPRESSION: 1. No change from 07/31/2017. RPTAT: QQ .Jim Bhat MD, MD Date Time Electronically viewed and signed by .Jim Bhat MD, MD on 08/01/2017 07:39 .R/
--- NOTE | 2017-08-01 09:54 | CONS ---
Date/Time of Note Date/Time of Note DATE: 08/01/17 TIME: 09:52 Consult Date/Type/Reason Admit Date/Time Jul 31, 2017 at 09:58 Initial Consult Date 07/31/17 Type of Consultation: Pulmonary Ordering Provider: GUSTAVO MCCARTY MD Subjective More alert this morning. Continues vasopressor support. Just completed hemodialysis. Objective Vital Signs Date Time Temp Pulse Resp B/P Pulse Ox O2 Delivery O2 Flow Rate FiO2 08/01/17 08:00 97.3 123 20 117/81 100 Mechanical Ventilator 08/01/17 05:35 50 Intake and Output 07/31/17 07/31/17 08/01/17 15:00 23:00 07:00 Intake Total 259.375 ml 187.4 ml 190.04 ml Output Total 0 ml 25 ml Balance 259.375 ml 187.4 ml 165.04 ml Exam PHYSICAL EXAMINATION: GENERAL APPEARANCE: On examination, chronically ill-appearing gentleman, eyes open, VITAL SIGNS: NECK: Trach site clean. CARDIAC: Sounds S1, S2. No added sounds or murmurs. CHEST: Diminished air entry bilaterally. ABDOMEN: Soft, nontender. No guarding or rebound. EXTREMITIES: No cyanosis, clubbing, edema +1 NEUROLOGIC: Unable to assess. Results/Medications Result Diagram: 07/31/17 1213 08/01/17 0350 Results 24 hrs Laboratory Tests Test 07/31/17 10:23 07/31/17 11:56 07/31/17 12:13 07/31/17 12:34 Blood Gas Specimen Source Blood arterial Arterial Blood Date Drawn 07/31/2017 10:20:42 AM Arterial Blood pH (Temp corrected) 7.176 *L Arterial Blood pCO2 (Temp correct) 65.1 H Arterial Blood pO2 (Temp corrected) 68.1 L Arterial Blood HCO3 23.5 Arterial Blood Base Excess -5.5 L Arterial Blood Oxygen Saturation 89.0 L Cholo Test ACCEPTAB Arterial Blood Gas Puncture Site Left Radial Arterial Blood Carboxyhemoglobin 0.1 Arterial Blood Methemoglobin 0.5 Blood Gas A-a O2 Differential 288.1 H Oxyhemoglobin Percent 88.5 L Total Hemoglobin 10.8 L Blood Gas Temperature 37.0 Blood Gas Modality T-TUBE FiO2 60.0 Blood Gas Critical Value Read Back DR ANGULO Blood Gas Notified Whom RAMU Blood Gas Notified Time 07/31/2017 10:32:19 AM Bedside Glucose 142 129 White Blood Count 23.3 H Red Blood Count 3.54 L Hemoglobin 8.7 L Hematocrit 29.3 L Mean Corpuscular Volume 82.8 Mean Corpuscular Hemoglobin 24.6 L Mean Corpuscular Hemoglobin Concent 29.7 L Red Cell Distribution Width 19.4 H Platelet Count 160 Mean Platelet Volume 9.9 Neutrophils % 88.2 H Lymphocytes % 0.7 L Monocytes % 8.4 Eosinophils % 0.0 Basophils % 0.2 Nucleated Red Blood Cells % 8.4 H Neutrophils # (Manual) 20.6 H Lymphocytes # 0.2 L Monocytes # 2.0 H Eosinophils # 0.0 Basophils # 0.0 Nucleated Red Blood Cells # 2.0 H Test 07/31/17 13:53 07/31/17 15:00 07/31/17 18:30 07/31/17 21:20 Bedside Glucose 102 86 68 L Blood Gas Specimen Source Blood arterial Arterial Blood Date Drawn 07/31/2017 3:38:37 PM Arterial Blood pH (Temp corrected) 7.322 L Arterial Blood pCO2 (Temp correct) 40.5 Arterial Blood pO2 (Temp corrected) 102.5 H Arterial Blood HCO3 20.5 L Arterial Blood Base Excess -5.2 L Arterial Blood Oxygen Saturation 97.4 Cholo Test ACCEPTAB Arterial Blood Gas Puncture Site Right Radial Arterial Blood Carboxyhemoglobin 0 Arterial Blood Methemoglobin 0.4 Blood Gas A-a O2 Differential 208.4 H Oxyhemoglobin Percent 97.0 Total Hemoglobin 9.8 L Blood Gas Temperature 37.0 Blood Gas Respiration Rate 14.0 Blood Gas Actual Respiration Rate 15 Blood Gas Modality VENT - AC FiO2 50.0 Blood Gas Tidal Volume 500.0 Blood Gas Low PEEP Setting 5.0 Blood Gas Notified Whom M.D. Blood Gas Notified Time 07/31/2017 3:48:45 PM Test 07/31/17 21:58 08/01/17 01:20 08/01/17 01:50 08/01/17 03:50 Bedside Glucose 138 66 L 136 Sodium Level 138 Potassium Level 4.7 Chloride Level 102 Carbon Dioxide Level 24 Anion Gap 17 H Blood Urea Nitrogen 118 H Creatinine 2.33 H Glucose Level 77 Lactic Acid Level 1.4 Calcium Level 7.9 L Total Bilirubin 1.8 H Direct Bilirubin 1.30 #H Indirect Bilirubin 0.5 Aspartate Amino Transf (AST/SGOT) 466 #H Alanine Aminotransferase (ALT/SGPT) 333 H Alkaline Phosphatase 336 H Total Protein 5.9 L Albumin 3.3 Globulin 2.60 Albumin/Globulin Ratio 1.26 Test 08/01/17 05:18 Bedside Glucose 75 Medications Current Medications Norepinephrine (Levophed) 250 ml @ 1.875 mls/ hr TITRATE IV Last administered on 07/31/17 22:06; Admin Dose 23.438 MLS/HR; Start 07/31/17 at 11:00 Insulin Aspart (Novolog Insulin Pen) NOVOLOG *MILD* ALGORI... Q4 SC ; Start 07/31 at 13:00 Miscellaneous Information 1 ea NOTE XX ; Start 07/31/17 at 12:00 Glucose (Glutose) 15 gm Q15M PRN PO DECREASED GLUCOSE; Start 07/31/17 at 12:00 Glucose (Glutose) 22.5 gm Q15M PRN PO DECREASED GLUCOSE; Start 07/31/17 at 12:00 Dextrose (D50w Syringe) 25 ml Q15M PRN IV DECREASED GLUCOSE Last administered on 08/01/17 01:23; Admin Dose 25 ML; Start 07/31/17 at 12:00 Dextrose (D50w Syringe) 50 ml Q15M PRN IV DECREASED GLUCOSE Last administered on 07/31/17 11:47; Admin Dose 50 ML; Start 07/31/17 at 12:00 Glucagon (Glucagen) 1 mg Q15M PRN IM DECREASED GLUCOSE; Start 07/31/17 at 12:00 Glucose 15 gm 15 gm Q15M PRN BUCCAL DECREASED GLUCOSE; Start 07/31/17 at 12:00 Meropenem/Sodium Chloride (Merrem 500mg/50 ml(Pmx)) 50 ml @ 100 mls/hr Q12 IVPB Last administered on 07/31/17 21:27; Admin Dose 100 MLS/HR; Start 07/31/17 at 21:00 Pantoprazole (Protonix Tab) 40 mg DAILY@06 PO ; Start 08/01/17 at 06:00 Assessment/Plan Chief Complaint/Hosp Course IMPRESSION: 1. Severe septic shock, persistent leukocytosis 2. Vent-dependent respiratory failure. 3. Hypoxemic hypercapnic respiratory failure. 4. Chronic encephalopathy. 5. History of right pleural effusion, status post thoracentesis. 6. History of lung cancer. 7. History of chordoma, status post resection. 8. 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 Continue mechanical ventilation. Continue current ventilator settings 2. Continue broad-spectrum antibiotics. 3. Palliative care recommendations 4. DVT and GI prophylaxis. 5. Vasopressor support 6. Hemodialysis as tolerated Problems: YAYA ANGULO MD, [facility] Aug 01, 2017 09:54
[2017-08-01] MEDS: MEROPENEM 500MG/50 ML (PMX) 50 ML IVPB SCH ×2 (10:09→21:02)
--- NOTE | 2017-08-01 10:30 | PN ---
Date/Time of Note Date/Time of Note DATE: 08/01/17 TIME: 10:29 Assessment/Plan VTE Prophylaxis VTE Prophylaxis Intervention: SCD's Lines/Catheters IV Catheter Type (from Nrs): Trialysis Urinary Cath still in place: Yes Reason Cath still needed: urinary retention Assessment/Plan Assessment/Plan 1. septic shock 2. hypoxemic resp failure s/p trach, vent dependent. 3. P afib; currently in NSR. 4. HX NSVT 5 LUIS FELIPE on CKD: S/P HD 6. CAD 7. HX PCI 8. HX CABG 9. ANEMIA 10 HX GI BLEED AND PUD 11. recurrent pleural effusion. 12. encephalopahty Recommendations: Broad-spectrum antibiotics to be continued and will be managed by ID team. We will continue to monitor on telemetry closely. At this point he is too hypotensive to tolerate any beta blockers. DIGOXIN will be given as very low- dose if needed Hemodialysis as per renal team. We will continue with the Levophed drip. Off of aspirin or Coumadin or high anticoagulant due to history of GI bleed at this point. PPI Vent support will be continued and managed as per pulmonary team. Continue with the trach care. SW family Subjective 24 Hr Interval Summary Free Text/Dictation the patinet with no chnge Exam/Review of Systems Vital Signs Vitals Vital Signs Date Time Temp Pulse Resp B/P Pulse Ox O2 Delivery O2 Flow Rate FiO2 08/01/17 08:00 97.3 123 20 117/81 100 Mechanical Ventilator 08/01/17 05:35 50 Intake and Output 07/31/17 07/31/17 08/01/17 15:00 23:00 07:00 Intake Total 259.375 ml 187.4 ml 190.04 ml Output Total 0 ml 25 ml Balance 259.375 ml 187.4 ml 165.04 ml Results Result Diagram: 07/31/17 1213 08/01/17 0350 Results 24 hrs Laboratory Tests Test 07/31/17 11:56 07/31/17 12:13 07/31/17 12:34 07/31/17 13:53 Bedside Glucose 142 129 102 White Blood Count 23.3 H Red Blood Count 3.54 L Hemoglobin 8.7 L Hematocrit 29.3 L Mean Corpuscular Volume 82.8 Mean Corpuscular Hemoglobin 24.6 L Mean Corpuscular Hemoglobin Concent 29.7 L Red Cell Distribution Width 19.4 H Platelet Count 160 Mean Platelet Volume 9.9 Neutrophils % 88.2 H Lymphocytes % 0.7 L Monocytes % 8.4 Eosinophils % 0.0 Basophils % 0.2 Nucleated Red Blood Cells % 8.4 H Neutrophils # (Manual) 20.6 H Lymphocytes # 0.2 L Monocytes # 2.0 H Eosinophils # 0.0 Basophils # 0.0 Nucleated Red Blood Cells # 2.0 H Test 07/31/17 15:00 07/31/17 18:30 07/31/17 21:20 07/31/17 21:58 Blood Gas Specimen Source Blood arterial Arterial Blood Date Drawn 07/31/2017 3:38:37 PM Arterial Blood pH (Temp corrected) 7.322 L Arterial Blood pCO2 (Temp correct) 40.5 Arterial Blood pO2 (Temp corrected) 102.5 H Arterial Blood HCO3 20.5 L Arterial Blood Base Excess -5.2 L Arterial Blood Oxygen Saturation 97.4 Cholo Test ACCEPTAB Arterial Blood Gas Puncture Site Right Radial Arterial Blood Carboxyhemoglobin 0 Arterial Blood Methemoglobin 0.4 Blood Gas A-a O2 Differential 208.4 H Oxyhemoglobin Percent 97.0 Total Hemoglobin 9.8 L Blood Gas Temperature 37.0 Blood Gas Respiration Rate 14.0 Blood Gas Actual Respiration Rate 15 Blood Gas Modality VENT - AC FiO2 50.0 Blood Gas Tidal Volume 500.0 Blood Gas Low PEEP Setting 5.0 Blood Gas Notified Whom MVarinder Blood Gas Notified Time 07/31/2017 3:48:45 PM Bedside Glucose 86 68 L 138 Test 08/01/17 01:20 08/01/17 01:50 08/01/17 03:50 08/01/17 05:18 Bedside Glucose 66 L 136 75 Sodium Level 138 Potassium Level 4.7 Chloride Level 102 Carbon Dioxide Level 24 Anion Gap 17 H Blood Urea Nitrogen 118 H Creatinine 2.33 H Glucose Level 77 Lactic Acid Level 1.4 Calcium Level 7.9 L Total Bilirubin 1.8 H Direct Bilirubin 1.30 #H Indirect Bilirubin 0.5 Aspartate Amino Transf (AST/SGOT) 466 #H Alanine Aminotransferase (ALT/SGPT) 333 H Alkaline Phosphatase 336 H Total Protein 5.9 L Albumin 3.3 Globulin 2.60 Albumin/Globulin Ratio 1.26 Test 08/01/17 10:15 Bedside Glucose 87 Medications Medications Current Medications Norepinephrine (Levophed) 250 ml @ 1.875 mls/ hr TITRATE IV Last administered on 07/31/17 22:06; Admin Dose 23.438 MLS/HR; Start 07/31/17 at 11:00 Insulin Aspart (Novolog Insulin Pen) NOVOLOG *MILD* ALGORI... Q4 SC ; Start 07/31 at 13:00 Miscellaneous Information 1 ea NOTE XX ; Start 07/31/17 at 12:00 Glucose (Glutose) 15 gm Q15M PRN PO DECREASED GLUCOSE; Start 07/31/17 at 12:00 Glucose (Glutose) 22.5 gm Q15M PRN PO DECREASED GLUCOSE; Start 07/31/17 at 12:00 Dextrose (D50w Syringe) 25 ml Q15M PRN IV DECREASED GLUCOSE Last administered on 08/01/17 01:23; Admin Dose 25 ML; Start 07/31/17 at 12:00 Dextrose (D50w Syringe) 50 ml Q15M PRN IV DECREASED GLUCOSE Last administered on 07/31/17 11:47; Admin Dose 50 ML; Start 07/31/17 at 12:00 Glucagon (Glucagen) 1 mg Q15M PRN IM DECREASED GLUCOSE; Start 07/31/17 at 12:00 Glucose 15 gm 15 gm Q15M PRN BUCCAL DECREASED GLUCOSE; Start 07/31/17 at 12:00 Meropenem/Sodium Chloride (Merrem 500mg/50 ml(Pmx)) 50 ml @ 100 mls/hr Q12 IVPB Last administered on 08/01/17 10:09; Admin Dose 100 MLS/HR; Start 07/31/17 at 21:00 Pantoprazole (Protonix Tab) 40 mg DAILY@06 PO ; Start 08/01/17 at 06:00 MARYLU FRANCO MD Aug 01, 2017 10:30
[2017-08-01] MEDS: NORepinephrine 8MG/250 ML (PMX 250 ML IV SCH (12:12)
[2017-08-01 12:59] LABS: AADO2 Arterial 177.8 mmHg (7.0-24.0); Allen Test ACCEPTAB; Arterial Base Excess -2.1 mmol/L (-3.0-3); Arterial COHb 0.1 % (0.0-3.0); Arterial HCO3 21.9 mmol/L (22.0-26.0); Arterial MetHb 0.5 % (0.0-1.5); Arterial Total Hemglobin 8.9 g/dl (12.0-18.0); MODE VENT - AC
[2017-08-01] MEDS ORDERED: ALBUTEROL/IPRATROPIUM (NEB) 3 ML AMP HHN SCH (14:00)
--- NOTE | 2017-08-01 14:20 | CONS ---
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 Patient has been undergoing treatment at [facility]. He was started on HD fur acute on chronic renal failure, gradually worsening. he becomes hypotensive today, his HD was cancelled for today and he gets transferred to [facility] ICU unit for further care. Problems: Additional Assessment/Plan 1. acute on chronic renal failure, started on HD 2. septic shock 3. CHF 3. Pleural effusion Right moderate Pleural effusion 4. Cardiomyopathy 5, Hypertension 6. Hyperlipidemia Plan : levophed for BP support IV abx as per ID Plan for HD today with albumin and midodrine support Pulmonary has been followign for vent management Consultation Date/Type/Reason Admit Date/Time Jul 31, 2017 at 09:58 Initial Consult Date 07/31/17 Type of Consultation: NPEHROLOGY Referring Provider: GUSTAVO MCCARTY MD 24 HR Interval Summary Free Text/Dictation BUN still high, BP labile, pt non verbal Exam/Review of Systems Vital Signs Vitals Vital Signs Date Time Temp Pulse Resp B/P Pulse Ox O2 Delivery O2 Flow Rate FiO2 08/01/17 14:00 110 19 97/59 100 Mechanical Ventilator 08/01/17 12:00 98.5 08/01/17 05:35 50 Intake and Output 07/31/17 07/31/17 08/01/17 15:00 23:00 07:00 Intake Total 259.375 ml 187.4 ml 190.04 ml Output Total 0 ml 27 ml Balance 259.375 ml 187.4 ml 163.04 ml Exam Constitutional: non-verbal Head: normocephalic ENMT: other (+ tracheostomy on ventilator ) Neck: other (no JVD, no LAD ), supple Respiratory: congested cough, crackles/rales, diminished breath sounds, wheezing Cardiovascular: other (tachycardia), regular rate and rhythm Gastrointestinal: non-tender, other (G tube in place ), soft Musculoskeletal: muscle tone, muscle weakness, swelling Results Result Diagram: 07/31/17 1213 08/01/17 0350 Results 24 hrs Laboratory Tests Test 07/31/17 15:00 07/31/17 18:30 07/31/17 21:20 07/31/17 21:58 Blood Gas Specimen Source Blood arterial Arterial Blood Date Drawn 07/31/2017 3:38:37 PM Arterial Blood pH (Temp corrected) 7.322 L Arterial Blood pCO2 (Temp correct) 40.5 Arterial Blood pO2 (Temp corrected) 102.5 H Arterial Blood HCO3 20.5 L Arterial Blood Base Excess -5.2 L Arterial Blood Oxygen Saturation 97.4 Cholo Test ACCEPTAB Arterial Blood Gas Puncture Site Right Radial Arterial Blood Carboxyhemoglobin 0 Arterial Blood Methemoglobin 0.4 Blood Gas A-a O2 Differential 208.4 H Oxyhemoglobin Percent 97.0 Total Hemoglobin 9.8 L Blood Gas Temperature 37.0 Blood Gas Respiration Rate 14.0 Blood Gas Actual Respiration Rate 15 Blood Gas Modality VENT - AC FiO2 50.0 Blood Gas Tidal Volume 500.0 Blood Gas Low PEEP Setting 5.0 Blood Gas Notified Whom M.D. Blood Gas Notified Time 07/31/2017 3:48:45 PM Bedside Glucose 86 68 L 138 Test 08/01/17 01:20 08/01/17 01:50 08/01/17 03:50 08/01/17 05:18 Bedside Glucose 66 L 136 75 Sodium Level 138 Potassium Level 4.7 Chloride Level 102 Carbon Dioxide Level 24 Anion Gap 17 H Blood Urea Nitrogen 118 H Creatinine 2.33 H Glucose Level 77 Lactic Acid Level 1.4 Calcium Level 7.9 L Total Bilirubin 1.8 H Direct Bilirubin 1.30 #H Indirect Bilirubin 0.5 Aspartate Amino Transf (AST/SGOT) 466 #H Alanine Aminotransferase (ALT/SGPT) 333 H Alkaline Phosphatase 336 H Total Protein 5.9 L Albumin 3.3 Globulin 2.60 Albumin/Globulin Ratio 1.26 Test 08/01/17 07:00 08/01/17 10:15 08/01/17 13:09 08/01/17 13:47 Blood Gas Specimen Source Blood arterial Arterial Blood Date Drawn 08/01/2017 12:36:04 PM Arterial Blood pH (Temp corrected) 7.420 Arterial Blood pCO2 (Temp correct) 34.6 L Arterial Blood pO2 (Temp corrected) 139.8 H Arterial Blood HCO3 21.9 L Arterial Blood Base Excess -2.1 Arterial Blood Oxygen Saturation 98.6 Cholo Test ACCEPTAB Arterial Blood Gas Puncture Site Right Radial Arterial Blood Carboxyhemoglobin 0.1 Arterial Blood Methemoglobin 0.5 Blood Gas A-a O2 Differential 177.8 H Oxyhemoglobin Percent 98.0 Total Hemoglobin 8.9 L Blood Gas Temperature 37.0 Blood Gas Respiration Rate 14.0 Blood Gas Actual Respiration Rate 19 Blood Gas Modality VENT - AC FiO2 50.0 Blood Gas Tidal Volume 500.0 Blood Gas Low PEEP Setting 5.0 Blood Gas Notified Whom DDH Blood Gas Notified Time 08/01/2017 12:59:03 PM Bedside Glucose 87 63 L 124 Medications Medications Current Medications Norepinephrine (Levophed) 250 ml @ 1.875 mls/ hr TITRATE IV Last administered on 08/01/17 12:12; Admin Dose 13.125 MLS/HR; Start 07/31/17 at 11:00 Insulin Aspart (Novolog Insulin Pen) NOVOLOG *MILD* ALGORI... Q4 SC ; Start 07/31 at 13:00 Miscellaneous Information 1 ea NOTE XX ; Start 07/31/17 at 12:00 Glucose (Glutose) 15 gm Q15M PRN PO DECREASED GLUCOSE; Start 07/31/17 at 12:00 Glucose (Glutose) 22.5 gm Q15M PRN PO DECREASED GLUCOSE; Start 07/31/17 at 12:00 Dextrose (D50w Syringe) 25 ml Q15M PRN IV DECREASED GLUCOSE Last administered on 08/01/17 13:14; Admin Dose 25 ML; Start 07/31/17 at 12:00 Dextrose (D50w Syringe) 50 ml Q15M PRN IV DECREASED GLUCOSE Last administered on 07/31/17 11:47; Admin Dose 50 ML; Start 07/31/17 at 12:00 Glucagon (Glucagen) 1 mg Q15M PRN IM DECREASED GLUCOSE; Start 07/31/17 at 12:00 Glucose 15 gm 15 gm Q15M PRN BUCCAL DECREASED GLUCOSE; Start 07/31/17 at 12:00 Meropenem/Sodium Chloride (Merrem 500mg/50 ml(Pmx)) 50 ml @ 100 mls/hr Q12 IVPB Last administered on 08/01/17 10:09; Admin Dose 100 MLS/HR; Start 07/31/17 at 21:00 Pantoprazole (Protonix Tab) 40 mg DAILY@06 PO ; Start 08/01/17 at 06:00 Miscellaneous Information (*Rx Drug Level Order Reminder*) RANDOM VANCOMYCIN LEVEL 9... ONCE ONCE XX ; Start 08/02/17 at 05:00; Stop 08/02/17 at 05:01 MAXIM VILLAVICENCIO MD Aug 01, 2017 14:20
--- NOTE | 2017-08-01 15:03 | PN ---
DATE: 08/01/2017 SUBJECTIVE DATA: No acute changes. The patient is noncommunicative, on pressors. Looks comfortable. No fevers. VITAL SIGNS: Temperature 98.5, pulse 110, respirations 19, blood pressure 97/59, saturation 100 on vent. LABORATORY DATA: No labs this morning. MICROBIOLOGY: Blood culture preliminary negative. DIAGNOSTICS: Chest x-ray this morning revealed no change. INDWELLINGS: Trach, PEG, right femoral Brad catheter with a pigtail. ANTIMICROBIALS: 1. Meropenem. 2. Vancomycin. PHYSICAL EXAMINATION: GENERAL: This is a chronically ill-appearing, elderly man, who is noncommunicative, in no distress. HEENT: Head atraumatic, normocephalic. Sclerae anicteric. Buccal mucosa dry. NECK: Supple. Tracheostomy present. CHEST: Rise symmetrical. Breath sounds diminished at the bases. HEART: S1, S2. ABDOMEN: Distended, soft. Bowel sounds hypoactive. EXTREMITIES: Modeled and cool to touch. ASSESSMENT: 1. Severe sepsis with shock. 2. Acute on chronic kidney disease, hemodialysis dependent. 3. Acute on chronic respiratory failure, possible pneumonia. 4. Encephalopathy. 5. Dysphagia. 6. Paroxysmal atrial fibrillation. PLAN: The patient remains unchanged. Final cultures pending. We will order labs tomorrow to check his white blood cell count, continue antibiotics. Follow recommendations of consultants. Dictated By: Barrett Green NP /filiberto/alexander /Document#: [id number]
--- NOTE | 2017-08-01 16:44 | PN ---
Date/Time of Note Date/Time of Note DATE: 08/01/17 TIME: 16:31 Assessment/Plan Lines/Catheters IV C[facility]ter Type (from [facility]): Trialysis Urinary Cath still in place: Yes Assessment/Plan Assessment/Plan - Septic shock sec to Severe sepsis. - per ID -Dr Nichols notified - Vent-dependent respiratory failure. - per pulmonary- Dr Andujar notified - Palliative care consult as overall prognosis extremely poor, as is quality of life. - Dr Yen notified - Hypoxemic hypercapnic respiratory failure. - Renal failure, on HD - Nephrology notified - Paroxysmal afib - Cardiology notified -. Chronic encephalopathy. - History of right pleural effusion, status post thoracentesis. - History of lung cancer. - History of chordoma, status post resection. PLAN: - Admit to ICU - Continue mechanical ventilation. We will repeat arterial blood gas on current settings. - Continue broad-spectrum antibiotics. - DVT and GI prophylaxis. Subjective 24 Hr Interval Summary Free Text/Dictation FAMILY AT BED SIDE. jennifer arrieta Constitutional: requiring IVF, requiring O2 Exam/Review of Systems Vital Signs Vitals Vital Signs Date Time Temp Pulse Resp B/P Pulse Ox O2 Delivery O2 Flow Rate FiO2 08/01/17 15:30 111 17 90/56 100 08/01/17 15:00 Mechanical Ventilator 08/01/17 12:00 98.5 08/01/17 05:35 50 Intake and Output 07/31/17 07/31/17 08/01/17 15:00 23:00 07:00 Intake Total 259.375 ml 187.4 ml 206.915 ml Output Total 0 ml 27 ml Balance 259.375 ml 187.4 ml 179.915 ml Results Result Diagram: 07/31/17 1213 08/01/17 0350 Results 24 hrs Laboratory Tests Test 07/31/17 18:30 07/31/17 21:20 07/31/17 21:58 08/01/17 01:20 Bedside Glucose 86 68 L 138 66 L Test 08/01/17 01:50 08/01/17 03:50 08/01/17 05:18 08/01/17 07:00 Bedside Glucose 136 75 Sodium Level 138 Potassium Level 4.7 Chloride Level 102 Carbon Dioxide Level 24 Anion Gap 17 H Blood Urea Nitrogen 118 H Creatinine 2.33 H Glucose Level 77 Lactic Acid Level 1.4 Calcium Level 7.9 L Total Bilirubin 1.8 H Direct Bilirubin 1.30 #H Indirect Bilirubin 0.5 Aspartate Amino Transf (AST/SGOT) 466 #H Alanine Aminotransferase (ALT/SGPT) 333 H Alkaline Phosphatase 336 H Total Protein 5.9 L Albumin 3.3 Globulin 2.60 Albumin/Globulin Ratio 1.26 Blood Gas Specimen Source Blood arterial Arterial Blood Date Drawn 08/01/2017 12:36:04 PM Arterial Blood pH (Temp corrected) 7.420 Arterial Blood pCO2 (Temp correct) 34.6 L Arterial Blood pO2 (Temp corrected) 139.8 H Arterial Blood HCO3 21.9 L Arterial Blood Base Excess -2.1 Arterial Blood Oxygen Saturation 98.6 Cholo Test ACCEPTAB Arterial Blood Gas Puncture Site Right Radial Arterial Blood Carboxyhemoglobin 0.1 Arterial Blood Methemoglobin 0.5 Blood Gas A-a O2 Differential 177.8 H Oxyhemoglobin Percent 98.0 Total Hemoglobin 8.9 L Blood Gas Temperature 37.0 Blood Gas Respiration Rate 14.0 Blood Gas Actual Respiration Rate 19 Blood Gas Modality VENT - AC FiO2 50.0 Blood Gas Tidal Volume 500.0 Blood Gas Low PEEP Setting 5.0 Blood Gas Notified Whom DDH Blood Gas Notified Time 08/01/2017 12:59:03 PM Test 08/01/17 10:15 08/01/17 13:09 08/01/17 13:47 Bedside Glucose 87 63 L 124 Medications Medications Current Medications Norepinephrine (Levophed) 250 ml @ 1.875 mls/ hr TITRATE IV Last administered on 08/01/17 12:12; Admin Dose 13.125 MLS/HR; Start 07/31/17 at 11:00; Stop at 21:00 Insulin Aspart (Novolog Insulin Pen) NOVOLOG *MILD* ALGORI... Q4 SC ; Start 07/31 at 13:00 Miscellaneous Information 1 ea NOTE XX ; Start 07/31/17 at 12:00 Glucose (Glutose) 15 gm Q15M PRN PO DECREASED GLUCOSE; Start 07/31/17 at 12:00 Glucose (Glutose) 22.5 gm Q15M PRN PO DECREASED GLUCOSE; Start 07/31/17 at 12:00 Dextrose (D50w Syringe) 25 ml Q15M PRN IV DECREASED GLUCOSE Last administered on 08/01/17 13:14; Admin Dose 25 ML; Start 07/31/17 at 12:00 Dextrose (D50w Syringe) 50 ml Q15M PRN IV DECREASED GLUCOSE Last administered on 07/31/17 11:47; Admin Dose 50 ML; Start 07/31/17 at 12:00 Glucagon (Glucagen) 1 mg Q15M PRN IM DECREASED GLUCOSE; Start 07/31/17 at 12:00 Glucose 15 gm 15 gm Q15M PRN BUCCAL DECREASED GLUCOSE; Start 07/31/17 at 12:00 Meropenem/Sodium Chloride (Merrem 500mg/50 ml(Pmx)) 50 ml @ 100 mls/hr Q12 IVPB Last administered on 08/01/17 10:09; Admin Dose 100 MLS/HR; Start 07/31/17 at 21:00 Pantoprazole (Protonix Tab) 40 mg DAILY@06 PO ; Start 08/01/17 at 06:00 Miscellaneous Information RANDOM VANCOMYCIN LEVEL 9... ONCE ONCE XX ; Start 09/08 at 05:00; Stop 08/02/17 at 05:01 Norepinephrine/ Dextrose (Levophed/D5W) 500 ml @ 1.87 mls/hr TITRATE IV ; Start 08/01/17 at 15:30 SEGUNDO MOLINA Aug 01, 2017 16:41
[2017-08-01] MEDS: LEVALBUTEROL (HFA) 15 GM INHALER INH SCH ×2 (17:00→20:28)
[2017-08-01] MEDS ORDERED: METOPROLOL 5 MG INJ IV PRN (20:00)
[2017-08-01] MEDS ORDERED: AMIODARONE 900 MG in DEXTROSE 5% 482 ML IV SCH (20:00)
[2017-08-01] MEDS: morphine 2 MG INJ IV PRN (22:51)
[2017-08-02] VITALS (78 sets, daily range): BP systolic 64–110; BP diastolic 45–81; PULSE 85–118; RESP 17–42
[2017-08-02] MEDS: LEVALBUTEROL (HFA) 15 GM INHALER INH SCH ×5 (00:01→15:46)
[2017-08-02] MEDS: INSULIN ASPART [NOVOLOG] 3 ML PEN SC SCH ×5 (01:00→17:00)
[2017-08-02] MEDS: morphine 2 MG INJ IV PRN ×2 (02:16→08:26)
[2017-08-02 04:35] LABS: ABNORMAL IP MESSAGE 1; BASOPHILS % 0.2 % (0.0-2.0); HEMATOCRIT 29.1 % (42.0-52.0); HEMOGLOBIN 8.5 g/dl (14.0-18.0); LYMPHOCYTES % 0.2 % (15.0-51.0); MEAN CORPUSCULAR HGB CONC 29.2 g/dl (32.0-37.0); MEAN CORPUSCULAR VOLUME 82.2 fl (82.0-101.0); MEAN PLATELET VOLUME 10.2 fl (7.4-10.4); MONOCYTE # 1.4 10^3/ul (0.3-0.9); MONOCYTES % 7.1 % (0.0-11.0); NEUTROPHILS % 91.2 % (39.0-77.0); NUCLEATED RED BLOOD CELLS # 1.6 10^3/ul (0.0-0.0); NUCLEATED RED BLOOD CELLS% 8.4 /100WBC (0.0-0.0); PLATELET COUNT 141 10^3/UL (140-415); POSITIVE DIFF @See below; RED BLOOD COUNT 3.54 10^6/ul (4.70-6.10); RED CELL DISTRIBUTION WIDTH 20.3 % (11.5-14.5); WHITE BLOOD COUNT 19.4 10^3/ul (4.8-10.8)
[2017-08-02 05:08] LABS: CALCIUM 8.3 mg/dl (8.4-10.2); CREATININE 2.38 mg/dl (0.61-1.24); MAGNESIUM 2.6 mg/dl (1.7-2.5); PHOSPHORUS 5.7 mg/dl (2.5-4.9); POTASSIUM 4.1 mmol/L (3.5-5.1)
[2017-08-02] MEDS: PANTOPRAZOLE (EC) 40 MG TAB PO SCH (05:55)
[2017-08-02] MEDS: AMIODARONE 900 MG in DEXTROSE 5% 482 ML IV SCH ×2 (08:15→10:58)
[2017-08-02] MEDS: MEROPENEM 500MG/50 ML (PMX) 50 ML IVPB SCH (08:26)
[2017-08-02] MEDS ORDERED: VANCOMYCIN 1 GM in NS 250 ML IVPB SCH (10:00)
--- NOTE | 2017-08-02 10:27 | RADRPT ---
PROCEDURE: XR Chest. CLINICAL INDICATION: Cough, pneumonia, CHF TECHNIQUE: Anterior chest x-ray. COMPARISON: 08/01/2017 FINDINGS: Tracheostomy tube demonstrates stable and satisfactory position. Small diameter catheter or chest tube projects over left lung base, unchanged. Patchy airspace opacities throughout both lungs are unchanged from previous exam. Small bilateral pleural effusions are unchanged from previous exam. There is no evidence of pneumothorax. Median sternotomy wires and vascular clips are unchanged from previous exam. The cardiomediastinal silhouette is otherwise unremarkable. The soft tissues are normal. Osseous structures are unremarkable. IMPRESSION: 1. Small bilateral pleural effusions, unchanged. 2. Scattered air space opacities throughout both lungs may represent pulmonary edema or pneumonia, unchanged from previous exam. 3. Stable and satisfactory position of tracheostomy tube. RPTAT: QQ .Karlos Rosado MD, MD Date Time Electronically viewed and signed by .Karlos Rosado MD, on 08/02/2017 10:27 .M/
--- NOTE | 2017-08-02 11:56 | PN ---
Date/Time of Note Date/Time of Note DATE: 08/02/17 TIME: 11:48 Assessment/Plan VTE Prophylaxis VTE Prophylaxis Intervention: other Lines/Catheters IV [facility]ter Type (from [facility]): Trialysis with Pigtail Urinary Cath still in place: Yes Assessment/Plan Assessment/Plan - Septic shock sec to Severe sepsis. - per ID -Dr Nichols notified - Vent-dependent respiratory failure. - per pulmonary- Dr Andujar notified - Palliative care consult as overall prognosis extremely poor, as is quality of life. - Dr Yen notified - Hypoxemic hypercapnic respiratory failure. - Renal failure, on HD - Nephrology notified - Paroxysmal afib - Cardiology notified -. Chronic encephalopathy. - History of right pleural effusion, status post thoracentesis. - History of lung cancer. - History of chordoma, status post resection. PLAN: - cont. care in ICU - Continue mechanical ventilation. We will repeat arterial - Continue broad-spectrum antibiotics. - DVT and GI prophylaxis. Dw Dr Bonner Subjective 24 Hr Interval Summary Subjective hx not possible: pt non-verbal Constitutional: requiring IVF, requiring O2 Exam/Review of Systems Vital Signs Vitals Vital Signs Date Time Temp Pulse Resp B/P Pulse Ox O2 Delivery O2 Flow Rate FiO2 08/02/17 11:34 93 26 95 30 08/02/17 11:15 88/61 Mechanical Ventilator 08/02/17 08:00 98.6 Intake and Output 08/01/17 08/01/17 08/02/17 15:00 23:00 07:00 Intake Total 653.125 ml 394.27 ml 697.82 ml Output Total 2512 ml 310 ml 15 ml Balance -1858.875 ml 84.27 ml 682.82 ml Exam On Levofed 18 mcg/hr, more alert today, afebrile, dw staff-has Afib in night- stared on Amiodarone drip - at 0.5 mcg now. Constitutional: other (open eyes at times, seems comfortable.) Cardiovascular: nl pulses, other (sfib) Gastrointestinal: ascites, soft Musculoskeletal: nl extremities to inspection Extremities: normal pulses Neurological: lethargic Results Result Diagram: 08/02/17 0400 08/02/17 0400 Results 24 hrs Laboratory Tests Test 08/01/17 13:09 08/01/17 13:47 08/01/17 17:44 08/01/17 20:42 Bedside Glucose 63 L 124 70 116 Test 08/02/17 01:20 08/02/17 03:50 08/02/17 04:00 08/02/17 04:45 Bedside Glucose 123 102 Random Vancomycin Level 12.5 White Blood Count 19.4 H Red Blood Count 3.54 L Hemoglobin 8.5 L Hematocrit 29.1 L Mean Corpuscular Volume 82.2 Mean Corpuscular Hemoglobin 24.0 L Mean Corpuscular Hemoglobin Concent 29.2 L Red Cell Distribution Width 20.3 H Platelet Count 141 Mean Platelet Volume 10.2 Neutrophils % 91.2 H Lymphocytes % 0.2 L Monocytes % 7.1 Eosinophils % 0.0 Basophils % 0.2 Nucleated Red Blood Cells % 8.4 H Neutrophils # (Manual) 17.7 H Lymphocytes # 0.0 L Monocytes # 1.4 H Eosinophils # 0.0 Basophils # 0.0 Nucleated Red Blood Cells # 1.6 H Sodium Level 139 Potassium Level 4.1 Chloride Level 103 Carbon Dioxide Level 21 Anion Gap 19 H Blood Urea Nitrogen 90 H Creatinine 2.38 H Glucose Level 102 Calcium Level 8.3 L Phosphorus Level 5.7 H Magnesium Level 2.6 H Medications Medications Current Medications Insulin Aspart (Novolog Insulin Pen) NOVOLOG *MILD* ALGORI... Q4 SC Last administered on 08/02/17 08:27; Admin Dose 1 UNIT; Start 07/31/17 at 13:00 Miscellaneous Information 1 ea NOTE XX ; Start 07/31/17 at 12:00 Glucose (Glutose) 15 gm Q15M PRN PO DECREASED GLUCOSE; Start 07/31/17 at 12:00 Glucose (Glutose) 22.5 gm Q15M PRN PO DECREASED GLUCOSE; Start 07/31/17 at 12:00 Dextrose (D50w Syringe) 25 ml Q15M PRN IV DECREASED GLUCOSE Last administered on 08/01/17 13:14; Admin Dose 25 ML; Start 07/31/17 at 12:00 Dextrose (D50w Syringe) 50 ml Q15M PRN IV DECREASED GLUCOSE Last administered on 07/31/17 11:47; Admin Dose 50 ML; Start 07/31/17 at 12:00 Glucagon (Glucagen) 1 mg Q15M PRN IM DECREASED GLUCOSE; Start 07/31/17 at 12:00 Glucose 15 gm 15 gm Q15M PRN BUCCAL DECREASED GLUCOSE; Start 07/31/17 at 12:00 Meropenem/Sodium Chloride (Merrem 500mg/50 ml(Pmx)) 50 ml @ 100 mls/hr Q12 IVPB Last administered on 08/02/17 08:26; Admin Dose 100 MLS/HR; Start at 21:00 Pantoprazole 40 mg 40 mg DAILY@06 PO Last administered on 08/02/17 05:55; Admin Dose 40 MG; Start 08/01/17 at 06:00 Norepinephrine/ Dextrose (Levophed/D5W) 500 ml @ 1.87 mls/hr TITRATE IV Last administered on 08/02/17 03:59; Admin Dose 20.62 MLS/HR; Start 08/01/17 at 15:30 Metoprolol Tartrate (Lopressor) 5 mg Q4H PRN IV ELEVATED HR; Start 08/01/17 at 20:00 Morphine Sulfate 2 mg 2 mg Q3H PRN IV PAIN Last administered on 08/02/17 08:26 ; Admin Dose 2 MG; Start 08/01/17 at 23:00 Vancomycin HCl 250 ml @ 125 mls/hr 10 IVPB Last administered on 08/02/17 10: 50; Admin Dose 125 MLS/HR; Start 08/02/17 at 10:00; Stop 08/02/17 at 19:00 Amiodarone HCl/ Dextrose (Cordarone Iv/ D5W) 500 ml @ 16.66 mls/ hr Q24H IV ; Start 08/02/17 at 10:58; Stop 08/03/17 at 04:57 SEGUNDO MOLINA Aug 02, 2017 11:56
--- NOTE | 2017-08-02 12:45 | PN ---
DATE: 08/02/2017 SUBJECTIVE: This patient remains on a ventilator, in no distress. OBJECTIVE DATA: VITAL SIGNS: Temperature 97.6, pulse 100, blood pressure 91/59, oxygen saturation 99 percent. NECK: No jugular venous distention. LUNGS: On a ventilator. ABDOMEN: Soft. EXTREMITIES: No edema. MEDICATIONS: Reviewed, on amiodarone drip at 1 mg/minute for atrial fibrillation last night. LABS RESULTS: White count 19.4, improved from 20/3 0.3, platelet count 141, sodium 138, potassium 4.1, BUN 9 and creatinine 2.3. This is stable. ASSESSMENT: 1. Respiratory failure. 2. Paroxysmal atrial fibrillation. Started on amiodarone. I will decreased to 0.5 mg/minute. 3. History of coronary disease. Percutaneous coronary intervention and coronary artery bypass graft. 4. Anemia. 5. Gastrointestinal bleed. PLAN: At this time we will continue broad-spectrum antibiotics. His primary problem is a sepsis. Fractures remain borderline. Will continue to monitor. He remains sinus rhythm at this time. Off anticoagulation due to GI bleed. Dictated By: Timi Awad MD /filiberto/alexander /Document#: [id number]
[2017-08-02] MEDS ORDERED: PHENYLephrine 40 MG in DEXTROSE 5% 496 ML IV SCH (13:00)
--- NOTE | 2017-08-02 13:10 | CONS ---
Date/Time of Note Date/Time of Note DATE: 08/02/17 TIME: 13:08 Consult Date/Type/Reason Admit Date/Time Jul 31, 2017 at 09:58 Initial Consult Date 07/31/17 Type of Consultation: Pulmonary Ordering Provider: GUSTAVO MCCARTY MD Subjective No significant changes. Opens eyes to stimuli not consistently following commands. Continues vasopressor support. Continues to feeding. Objective Vital Signs Date Time Temp Pulse Resp B/P Pulse Ox O2 Delivery O2 Flow Rate FiO2 08/02/17 11:34 93 26 95 30 08/02/17 11:15 88/61 Mechanical Ventilator 08/02/17 08:00 98.6 Intake and Output 08/01/17 08/01/17 08/02/17 14:59 22:59 06:59 Intake Total 670.000 ml 312.19 ml 725.95 ml Output Total 2514 ml 310 ml 15 ml Balance -1844.000 ml 2.19 ml 710.95 ml Exam PHYSICAL EXAMINATION: GENERAL APPEARANCE: On examination, chronically ill-appearing gentleman, eyes open, VITAL SIGNS: NECK: Trach site clean and intact CARDIAC: Sounds S1, S2. No added sounds or murmurs. CHEST: Diminished air entry bilaterally. ABDOMEN: Soft, nontender. No guarding or rebound. EXTREMITIES: No cyanosis, clubbing, edema +1 NEUROLOGIC: Unable to assess, no focal deficits. Results/Medications Result Diagram: 08/02/17 0400 08/02/17 0400 Results 24 hrs Laboratory Tests Test 08/01/17 13:09 08/01/17 13:47 08/01/17 17:44 08/01/17 20:42 Bedside Glucose 63 L 124 70 116 Test 08/02/17 01:20 08/02/17 03:50 08/02/17 04:00 08/02/17 04:45 Bedside Glucose 123 102 Random Vancomycin Level 12.5 White Blood Count 19.4 H Red Blood Count 3.54 L Hemoglobin 8.5 L Hematocrit 29.1 L Mean Corpuscular Volume 82.2 Mean Corpuscular Hemoglobin 24.0 L Mean Corpuscular Hemoglobin Concent 29.2 L Red Cell Distribution Width 20.3 H Platelet Count 141 Mean Platelet Volume 10.2 Neutrophils % 91.2 H Lymphocytes % 0.2 L Monocytes % 7.1 Eosinophils % 0.0 Basophils % 0.2 Nucleated Red Blood Cells % 8.4 H Neutrophils # (Manual) 17.7 H Lymphocytes # 0.0 L Monocytes # 1.4 H Eosinophils # 0.0 Basophils # 0.0 Nucleated Red Blood Cells # 1.6 H Sodium Level 139 Potassium Level 4.1 Chloride Level 103 Carbon Dioxide Level 21 Anion Gap 19 H Blood Urea Nitrogen 90 H Creatinine 2.38 H Glucose Level 102 Calcium Level 8.3 L Phosphorus Level 5.7 H Magnesium Level 2.6 H Test 08/02/17 12:16 Bedside Glucose 99 Medications Current Medications Insulin Aspart (Novolog Insulin Pen) NOVOLOG *MILD* ALGORI... Q4 SC Last administered on 08/02/17 08:27; Admin Dose 1 UNIT; Start 07/31/17 at 13:00 Miscellaneous Information 1 ea NOTE XX ; Start 07/31/17 at 12:00 Glucose (Glutose) 15 gm Q15M PRN PO DECREASED GLUCOSE; Start 07/31/17 at 12:00 Glucose (Glutose) 22.5 gm Q15M PRN PO DECREASED GLUCOSE; Start 07/31/17 at 12:00 Dextrose (D50w Syringe) 25 ml Q15M PRN IV DECREASED GLUCOSE Last administered on 08/01/17 13:14; Admin Dose 25 ML; Start 07/31/17 at 12:00 Dextrose (D50w Syringe) 50 ml Q15M PRN IV DECREASED GLUCOSE Last administered on 07/31/17 11:47; Admin Dose 50 ML; Start 07/31/17 at 12:00 Glucagon (Glucagen) 1 mg Q15M PRN IM DECREASED GLUCOSE; Start 07/31/17 at 12:00 Glucose 15 gm 15 gm Q15M PRN BUCCAL DECREASED GLUCOSE; Start 07/31/17 at 12:00 Meropenem/Sodium Chloride (Merrem 500mg/50 ml(Pmx)) 50 ml @ 100 mls/hr Q12 IVPB Last administered on 08/02/17 08:26; Admin Dose 100 MLS/HR; Start at 21:00 Pantoprazole (Protonix Tab) 40 mg DAILY@06 PO Last administered on 08/02/17 05 :55; Admin Dose 40 MG; Start 08/01/17 at 06:00 Metoprolol Tartrate (Lopressor) 5 mg Q4H PRN IV ELEVATED HR; Start 08/01/17 at 20:00 Morphine Sulfate 2 mg 2 mg Q3H PRN IV PAIN Last administered on 08/02/17 08:26 ; Admin Dose 2 MG; Start 08/01/17 at 23:00 Vancomycin HCl 250 ml @ 125 mls/hr 10 IVPB Last administered on 08/02/17 10: 50; Admin Dose 125 MLS/HR; Start 08/02/17 at 10:00; Stop 08/02/17 at 19:00 Amiodarone HCl 900 mg/Dextrose 500 ml @ 16.66 mls/ hr Q24H IV Last administered on 08/02/17 08:15; Admin Dose 16.66 MLS/HR; Start 08/02/17 at 10: 58; Stop 08/03/17 at 04:57 Norepinephrine 16 mg/Dextrose 500 ml @ 1.87 mls/hr TITRATE IV Last administered on 08/02/17 09:45; Admin Dose 33.75 MLS/HR; Start 08/02/17 at 12: 00 Phenylephrine HCl/ Dextrose (Bala-Syneph/D5W) 500 ml @ 75 mls/hr TITRATE IV ; Start 08/02/17 at 13:00 Assessment/Plan Chief Complaint/Hosp Course IMPRESSION: 1. Severe septic shock, persistent leukocytosis 2. Vent-dependent respiratory failure. 3. Hypoxemic hypercapnic respiratory failure. 4. Chronic encephalopathy. 5. History of right pleural effusion, status post thoracentesis. 6. History of lung cancer. 7. History of chordoma, status post resection. 8. 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 Continue mechanical ventilation. Continue current ventilator settings 2. Continue broad-spectrum antibiotics. 3. Palliative care recommendations 4. DVT and GI prophylaxis. 5. Vasopressor support 6. Hemodialysis as tolerated Overall prognosis remains extremely poor. Patient to continue ICU care. Problems: YAYA ANGULO MD, [facility] Aug 02, 2017 13:10
--- NOTE | 2017-08-02 14:01 | PN ---
DATE: 08/02/2017 SUBJECTIVE DATA: No acute changes overnight. The patient is intubated, sedated on Levophed drip. No fevers. OBJECTIVE DATA: VITAL SIGNS: Temperature 98.2, pulse respirations 26, blood pressure 91/67, saturation 96 percent. LABORATORY AND DIAGNOSTIC DATA: WBC 19.4, H and H 8.5 and 29.1, platelet count 141, neutrophils 91.2, sodium 139, potassium 4.1. BUN 90, creatinine 2.38. MICROBIOLOGY: Blood culture and urine culture remain negative. Nares swab negative. DIAGNOSTICS: Chest x-ray revealed small bilateral pleural effusions, unchanged. Scattered airspace opacities throughout both lungs. Questionable pulmonary edema or pneumonia, unchanged from previous exam. INDWELLINGS: Trach, PEG, Scanlon, right femoral Brad with pigtail. ANTIMICROBIALS: 1. Vancomycin. 2. Meropenem. PHYSICAL EXAMINATION: GENERAL: This is a chronically ill-appearing, cachectic, elderly man, who is in no distress. HEENT: Head atraumatic, normocephalic. Sclerae anicteric. Buccal mucosa dry. NECK: Supple. Trachea midline. CHEST: Rise symmetrical. Breath sounds diminished at the bases. HEART: S1, S2. ABDOMEN: Soft, bowel sounds present. EXTREMITIES: No cyanosis. ASSESSMENT: 1. Sepsis with shock. 2. Acute on chronic respiratory failure secondary to fluid overload and possible pneumonia. 3. Acute on chronic renal failure, started on hemodialysis. 4. Paroxysmal atrial fibrillation. 5. Dysphagia. 6. Encephalopathy. 7. History of coronary artery bypass grafting. PLAN: The patient remains on pressors, covered with broad- spectrum antibiotics, so far blood and urine cultures have been negative. We will send sputum for culture. Continue management as per primary team and consultants. Dictated By: Barrett Green NP /filiberto/alexander /Document#: [id number]
--- NOTE | 2017-08-02 14:11 | CONS ---
Date/Time of Note Date/Time of Note DATE: 08/02/17 TIME: 14:07 Assessment/Plan Assessment/Plan Additional Assessment/Plan 1. acute on chronic renal failure, started on HD 2. septic shock 3. CHF 3. Pleural effusion Right moderate Pleural effusion 4. Cardiomyopathy 5, Hypertension 6. Hyperlipidemia 7. atrial fibrillation 8. Acute on chronic respiratory failure,s/p tracheostomy on ventilator Plan : levophed for BP support IV abx Meropenem and vancomycin as per ID Amiodarine drip Plan for HD today with albumin and midodrine support - 2 L removed Pulmonary has been followign for vent management Consultation Date/Type/Reason Admit Date/Time Jul 31, 2017 at 09:58 Initial Consult Date 07/31/17 Type of Consultation: NEPHROLOGY Referring Provider: GUSTAVO MCCARTY MD 24 HR Interval Summary Free Text/Dictation pt remains on ventilator, BP still low, on levophed , IV abx vancomycin, meropenem Exam/Review of Systems Vital Signs Vitals Vital Signs Date Time Temp Pulse Resp B/P Pulse Ox O2 Delivery O2 Flow Rate FiO2 08/02/17 13:00 97 27 98/60 95 Mechanical Ventilator 08/02/17 12:00 98.2 08/02/17 11:34 30 Intake and Output 08/01/17 08/01/17 08/02/17 15:00 23:00 07:00 Intake Total 653.125 ml 394.27 ml 697.82 ml Output Total 2512 ml 310 ml 15 ml Balance -1858.875 ml 84.27 ml 682.82 ml Exam Constitutional: non-verbal Head: normocephalic ENMT: other (+ tracheostomy on ventilator ) Neck: other (no JVD, no LAD ), supple Respiratory: congested cough, crackles/rales, diminished breath sounds, wheezing Cardiovascular: other (tachycardia), regular rate and rhythm Gastrointestinal: non-tender, other (G tube in place ), soft Musculoskeletal: muscle tone, muscle weakness, swelling Results Result Diagram: 08/02/17 0400 08/02/17 0400 Results 24 hrs Laboratory Tests Test 08/01/17 17:44 08/01/17 20:42 08/02/17 01:20 08/02/17 03:50 Bedside Glucose 70 116 123 Random Vancomycin Level 12.5 Test 08/02/17 04:00 08/02/17 04:45 08/02/17 12:16 White Blood Count 19.4 H Red Blood Count 3.54 L Hemoglobin 8.5 L Hematocrit 29.1 L Mean Corpuscular Volume 82.2 Mean Corpuscular Hemoglobin 24.0 L Mean Corpuscular Hemoglobin Concent 29.2 L Red Cell Distribution Width 20.3 H Platelet Count 141 Mean Platelet Volume 10.2 Neutrophils % 91.2 H Lymphocytes % 0.2 L Monocytes % 7.1 Eosinophils % 0.0 Basophils % 0.2 Nucleated Red Blood Cells % 8.4 H Neutrophils # (Manual) 17.7 H Lymphocytes # 0.0 L Monocytes # 1.4 H Eosinophils # 0.0 Basophils # 0.0 Nucleated Red Blood Cells # 1.6 H Sodium Level 139 Potassium Level 4.1 Chloride Level 103 Carbon Dioxide Level 21 Anion Gap 19 H Blood Urea Nitrogen 90 H Creatinine 2.38 H Glucose Level 102 Calcium Level 8.3 L Phosphorus Level 5.7 H Magnesium Level 2.6 H Bedside Glucose 102 99 Medications Medications Current Medications Insulin Aspart (Novolog Insulin Pen) NOVOLOG *MILD* ALGORI... Q4 SC Last administered on 08/02/17 08:27; Admin Dose 1 UNIT; Start 07/31/17 at 13:00 Miscellaneous Information 1 ea NOTE XX ; Start 07/31/17 at 12:00 Glucose (Glutose) 15 gm Q15M PRN PO DECREASED GLUCOSE; Start 07/31/17 at 12:00 Glucose (Glutose) 22.5 gm Q15M PRN PO DECREASED GLUCOSE; Start 07/31/17 at 12:00 Dextrose (D50w Syringe) 25 ml Q15M PRN IV DECREASED GLUCOSE Last administered on 08/01/17 13:14; Admin Dose 25 ML; Start 07/31/17 at 12:00 Dextrose (D50w Syringe) 50 ml Q15M PRN IV DECREASED GLUCOSE Last administered on 07/31/17 11:47; Admin Dose 50 ML; Start 07/31/17 at 12:00 Glucagon (Glucagen) 1 mg Q15M PRN IM DECREASED GLUCOSE; Start 07/31/17 at 12:00 Glucose 15 gm 15 gm Q15M PRN BUCCAL DECREASED GLUCOSE; Start 07/31/17 at 12:00 Meropenem/Sodium Chloride (Merrem 500mg/50 ml(Pmx)) 50 ml @ 100 mls/hr Q12 IVPB Last administered on 08/02/17 08:26; Admin Dose 100 MLS/HR; Start at 21:00 Pantoprazole (Protonix Tab) 40 mg DAILY@06 PO Last administered on 08/02/17 05 :55; Admin Dose 40 MG; Start 08/01/17 at 06:00 Metoprolol Tartrate (Lopressor) 5 mg Q4H PRN IV ELEVATED HR; Start 08/01/17 at 20:00 Morphine Sulfate 2 mg 2 mg Q3H PRN IV PAIN Last administered on 08/02/17 08:26 ; Admin Dose 2 MG; Start 08/01/17 at 23:00 Vancomycin HCl 250 ml @ 125 mls/hr 10 IVPB Last administered on 08/02/17 10: 50; Admin Dose 125 MLS/HR; Start 08/02/17 at 10:00; Stop 08/02/17 at 19:00 Amiodarone HCl 900 mg/Dextrose 500 ml @ 16.66 mls/ hr Q24H IV Last administered on 08/02/17 08:15; Admin Dose 16.66 MLS/HR; Start 08/02/17 at 10: 58; Stop 08/03/17 at 04:57 Norepinephrine 16 mg/Dextrose 500 ml @ 1.87 mls/hr TITRATE IV Last administered on 08/02/17 09:45; Admin Dose 33.75 MLS/HR; Start 08/02/17 at 12: 00 Phenylephrine HCl/ Dextrose (Bala-Syneph/D5W) 500 ml @ 75 mls/hr TITRATE IV ; Start 08/02/17 at 13:00 MAXIM VILLAVICENCIO MD Aug 02, 2017 14:11
--- NOTE | 2017-08-02 17:46 | CONS ---
Date/Time of Note Date/Time of Note DATE: 08/02/17 TIME: 17:43 Assessment/Plan Assessment/Plan Additional Assessment/Plan Post date for Aug 01 No significant changes in clinical course is not here today. I will find her and have another meeting , pt is failing. Consultation Date/Type/Reason Admit Date/Time Jul 31, 2017 at 09:58 Initial Consult Date 07/31/17 Type of Consultation: palliative Care Reason for Consultation 76-year-old gentleman who was transferred to the intensive care unit [facility] with deteriorating mental status, hypotension hypoxic respiratory failure the patient was a resident of [facility] until he became unstable and was transferred to intensive care unit. She is chronically trached and pegd. From the medical records taste from patient's chart he also has history of lung nodules presumed to be lung cancer, history of prostate cancer and encephalopathy. His information is taken from patient's medical records as well as speaking to his . Referring Provider: GUSTAVO MCCARTY MD Exam/Review of Systems Vital Signs Vitals Vital Signs Date Time Temp Pulse Resp B/P Pulse Ox O2 Delivery O2 Flow Rate FiO2 08/02/17 17:15 93 31 99/69 99 Mechanical Ventilator 08/02/17 16:00 98.2 08/02/17 15:42 31 Intake and Output 08/01/17 08/01/17 08/02/17 15:00 23:00 07:00 Intake Total 653.125 ml 394.27 ml 727.82 ml Output Total 2512 ml 310 ml 15 ml Balance -1858.875 ml 84.27 ml 712.82 ml Exam Constitutional: frail, non-verbal Neurological: lethargic, unresponsive (Does not follow ay somple commands, no purposeful movements) Results Result Diagram: 08/02/17 0400 08/02/17 0400 Results 24 hrs Laboratory Tests Test 08/01/17 17:44 08/01/17 20:42 08/02/17 01:20 08/02/17 03:50 Bedside Glucose 70 116 123 Random Vancomycin Level 12.5 Test 08/02/17 04:00 08/02/17 04:45 08/02/17 12:16 08/02/17 17:01 White Blood Count 19.4 H Red Blood Count 3.54 L Hemoglobin 8.5 L Hematocrit 29.1 L Mean Corpuscular Volume 82.2 Mean Corpuscular Hemoglobin 24.0 L Mean Corpuscular Hemoglobin Concent 29.2 L Red Cell Distribution Width 20.3 H Platelet Count 141 Mean Platelet Volume 10.2 Neutrophils % 91.2 H Lymphocytes % 0.2 L Monocytes % 7.1 Eosinophils % 0.0 Basophils % 0.2 Nucleated Red Blood Cells % 8.4 H Neutrophils # (Manual) 17.7 H Lymphocytes # 0.0 L Monocytes # 1.4 H Eosinophils # 0.0 Basophils # 0.0 Nucleated Red Blood Cells # 1.6 H Sodium Level 139 Potassium Level 4.1 Chloride Level 103 Carbon Dioxide Level 21 Anion Gap 19 H Blood Urea Nitrogen 90 H Creatinine 2.38 H Glucose Level 102 Calcium Level 8.3 L Phosphorus Level 5.7 H Magnesium Level 2.6 H Bedside Glucose 102 99 88 Medications Medications Current Medications Insulin Aspart (Novolog Insulin Pen) NOVOLOG *MILD* ALGORI... Q4 SC Last administered on 08/02/17 08:27; Admin Dose 1 UNIT; Start 07/31/17 at 13:00 Miscellaneous Information 1 ea NOTE XX ; Start 07/31/17 at 12:00 Glucose (Glutose) 15 gm Q15M PRN PO DECREASED GLUCOSE; Start 07/31/17 at 12:00 Glucose (Glutose) 22.5 gm Q15M PRN PO DECREASED GLUCOSE; Start 07/31/17 at 12:00 Dextrose (D50w Syringe) 25 ml Q15M PRN IV DECREASED GLUCOSE Last administered on 08/01/17 13:14; Admin Dose 25 ML; Start 07/31/17 at 12:00 Dextrose (D50w Syringe) 50 ml Q15M PRN IV DECREASED GLUCOSE Last administered on 07/31/17 11:47; Admin Dose 50 ML; Start 07/31/17 at 12:00 Glucagon (Glucagen) 1 mg Q15M PRN IM DECREASED GLUCOSE; Start 07/31/17 at 12:00 Glucose 15 gm 15 gm Q15M PRN BUCCAL DECREASED GLUCOSE; Start 07/31/17 at 12:00 Meropenem/Sodium Chloride (Merrem 500mg/50 ml(Pmx)) 50 ml @ 100 mls/hr Q12 IVPB Last administered on 08/02/17 08:26; Admin Dose 100 MLS/HR; Start at 21:00 Pantoprazole (Protonix Tab) 40 mg DAILY@06 PO Last administered on 08/02/17 05 :55; Admin Dose 40 MG; Start 08/01/17 at 06:00 Metoprolol Tartrate (Lopressor) 5 mg Q4H PRN IV ELEVATED HR; Start 08/01/17 at 20:00 Morphine Sulfate 2 mg 2 mg Q3H PRN IV PAIN Last administered on 08/02/17 08:26 ; Admin Dose 2 MG; Start 08/01/17 at 23:00 Vancomycin HCl 250 ml @ 125 mls/hr 10 IVPB Last administered on 08/02/17 10: 50; Admin Dose 125 MLS/HR; Start 08/02/17 at 10:00; Stop 08/02/17 at 19:00 Amiodarone HCl 900 mg/Dextrose 500 ml @ 16.66 mls/ hr Q24H IV Last administered on 08/02/17 08:15; Admin Dose 16.66 MLS/HR; Start 08/02/17 at 10: 58; Stop 08/03/17 at 04:57 Norepinephrine 16 mg/Dextrose 500 ml @ 1.87 mls/hr TITRATE IV Last administered on 08/02/17 09:45; Admin Dose 33.75 MLS/HR; Start 08/02/17 at 12: 00 Phenylephrine HCl/ Dextrose (Bala-Syneph/D5W) 500 ml @ 75 mls/hr TITRATE IV Last administered on 08/02/17 16:20; Admin Dose 75 MLS/HR; Start 08/02/17 at 13 :00 KASIA ACEVEDO Aug 02, 2017 17:46
--- NOTE | 2017-08-02 18:08 | CONS ---
Date/Time of Note Date/Time of Note DATE: 08/02/17 TIME: 18:04 Assessment/Plan Assessment/Plan Additional Assessment/Plan long conversation over the phone... she does not want to change to comfort measures.. Pt is currently on two pressors and not improving cognitively... she is ok with continuing DNR but goal are unclear exxcept continue with this level of care.. I will speak with her once again tomorrow continue to support her as she does not have any family locally and there are no plans as she said to me of her children visiting. Consultation Date/Type/Reason Admit Date/Time Jul 31, 2017 at 09:58 Initial Consult Date 07/31/17 Type of Consultation: palliative Care Referring Provider: GUSTAVO MCCARTY MD Exam/Review of Systems Vital Signs Vitals Vital Signs Date Time Temp Pulse Resp B/P Pulse Ox O2 Delivery O2 Flow Rate FiO2 08/02/17 17:15 93 31 99/69 99 Mechanical Ventilator 08/02/17 16:00 98.2 08/02/17 15:42 31 Intake and Output 08/01/17 08/01/17 08/02/17 15:00 23:00 07:00 Intake Total 653.125 ml 394.27 ml 727.82 ml Output Total 2512 ml 310 ml 15 ml Balance -1858.875 ml 84.27 ml 712.82 ml Results Result Diagram: 08/02/17 0400 08/02/17 0400 Results 24 hrs Laboratory Tests Test 08/01/17 20:42 08/02/17 01:20 08/02/17 03:50 08/02/17 04:00 Bedside Glucose 116 123 Random Vancomycin Level 12.5 White Blood Count 19.4 H Red Blood Count 3.54 L Hemoglobin 8.5 L Hematocrit 29.1 L Mean Corpuscular Volume 82.2 Mean Corpuscular Hemoglobin 24.0 L Mean Corpuscular Hemoglobin Concent 29.2 L Red Cell Distribution Width 20.3 H Platelet Count 141 Mean Platelet Volume 10.2 Neutrophils % 91.2 H Lymphocytes % 0.2 L Monocytes % 7.1 Eosinophils % 0.0 Basophils % 0.2 Nucleated Red Blood Cells % 8.4 H Neutrophils # (Manual) 17.7 H Lymphocytes # 0.0 L Monocytes # 1.4 H Eosinophils # 0.0 Basophils # 0.0 Nucleated Red Blood Cells # 1.6 H Sodium Level 139 Potassium Level 4.1 Chloride Level 103 Carbon Dioxide Level 21 Anion Gap 19 H Blood Urea Nitrogen 90 H Creatinine 2.38 H Glucose Level 102 Calcium Level 8.3 L Phosphorus Level 5.7 H Magnesium Level 2.6 H Test 08/02/17 04:45 08/02/17 12:16 08/02/17 17:01 Bedside Glucose 102 99 88 Medications Medications Current Medications Insulin Aspart (Novolog Insulin Pen) NOVOLOG *MILD* ALGORI... Q4 SC Last administered on 08/02/17 08:27; Admin Dose 1 UNIT; Start 07/31/17 at 13:00 Miscellaneous Information 1 ea NOTE XX ; Start 07/31/17 at 12:00 Glucose (Glutose) 15 gm Q15M PRN PO DECREASED GLUCOSE; Start 07/31/17 at 12:00 Glucose (Glutose) 22.5 gm Q15M PRN PO DECREASED GLUCOSE; Start 07/31/17 at 12:00 Dextrose (D50w Syringe) 25 ml Q15M PRN IV DECREASED GLUCOSE Last administered on 08/01/17 13:14; Admin Dose 25 ML; Start 07/31/17 at 12:00 Dextrose (D50w Syringe) 50 ml Q15M PRN IV DECREASED GLUCOSE Last administered on 07/31/17 11:47; Admin Dose 50 ML; Start 07/31/17 at 12:00 Glucagon (Glucagen) 1 mg Q15M PRN IM DECREASED GLUCOSE; Start 07/31/17 at 12:00 Glucose 15 gm 15 gm Q15M PRN BUCCAL DECREASED GLUCOSE; Start 07/31/17 at 12:00 Meropenem/Sodium Chloride (Merrem 500mg/50 ml(Pmx)) 50 ml @ 100 mls/hr Q12 IVPB Last administered on 08/02/17 08:26; Admin Dose 100 MLS/HR; Start at 21:00 Pantoprazole (Protonix Tab) 40 mg DAILY@06 PO Last administered on 08/02/17 05 :55; Admin Dose 40 MG; Start 08/01/17 at 06:00 Metoprolol Tartrate (Lopressor) 5 mg Q4H PRN IV ELEVATED HR; Start 08/01/17 at 20:00 Morphine Sulfate 2 mg 2 mg Q3H PRN IV PAIN Last administered on 08/02/17 08:26 ; Admin Dose 2 MG; Start 08/01/17 at 23:00 Vancomycin HCl 250 ml @ 125 mls/hr 10 IVPB Last administered on 08/02/17 10: 50; Admin Dose 125 MLS/HR; Start 08/02/17 at 10:00; Stop 08/02/17 at 19:00 Amiodarone HCl 900 mg/Dextrose 500 ml @ 16.66 mls/ hr Q24H IV Last administered on 08/02/17 08:15; Admin Dose 16.66 MLS/HR; Start 08/02/17 at 10: 58; Stop 08/03/17 at 04:57 Norepinephrine 16 mg/Dextrose 500 ml @ 1.87 mls/hr TITRATE IV Last administered on 08/02/17 09:45; Admin Dose 33.75 MLS/HR; Start 08/02/17 at 12: 00 Phenylephrine HCl/ Dextrose (Bala-Syneph/D5W) 500 ml @ 75 mls/hr TITRATE IV Last administered on 08/02/17 16:20; Admin Dose 75 MLS/HR; Start 08/02/17 at 13 :00 KASIA ACEVEDO Aug 02, 2017 18:08
[2017-08-02] MEDS ORDERED: DOPamine-D5W 1.6 MG/ML 250 ML ONE (18:37)
[2017-08-02] MEDS ORDERED: DOPamine-D5W 1.6 MG/ML 250 ML IV SCH (19:00)
[2017-08-02] MEDS ORDERED: VASOPRESSIN 60 UNIT in DEXTROSE 5% 57 ML IV SCH (19:30)
--- NOTE | 2017-08-02 19:35 | CONS ---
Date/Time of Note Date/Time of Note DATE: 08/02/17 TIME: 19:35 Assessment/Plan Assessment/Plan Additional Assessment/Plan Called to pronounce patient no blood pressure flat line EKG no pulses pronounced at 1930 Consultation Date/Type/Reason Admit Date/Time Jul 31, 2017 at 09:58 Initial Consult Date 07/31/17 Type of Consultation: palliative Care Referring Provider: GUSTAVO MCCARTY MD Exam/Review of Systems Vital Signs Vitals Vital Signs Date Time Temp Pulse Resp B/P Pulse Ox O2 Delivery O2 Flow Rate FiO2 08/02/17 18:15 85 28 64/47 94 Mechanical Ventilator 08/02/17 16:59 30 08/02/17 16:00 98.2 Intake and Output 08/01/17 08/01/17 08/02/17 14:59 22:59 06:59 Intake Total 670.000 ml 312.19 ml 725.95 ml Output Total 2514 ml 310 ml 15 ml Balance -1844.000 ml 2.19 ml 710.95 ml Results Result Diagram: 08/02/17 0400 08/02/17 0400 Results 24 hrs Laboratory Tests Test 08/01/17 20:42 08/02/17 01:20 08/02/17 03:50 08/02/17 04:00 Bedside Glucose 116 123 Random Vancomycin Level 12.5 White Blood Count 19.4 H Red Blood Count 3.54 L Hemoglobin 8.5 L Hematocrit 29.1 L Mean Corpuscular Volume 82.2 Mean Corpuscular Hemoglobin 24.0 L Mean Corpuscular Hemoglobin Concent 29.2 L Red Cell Distribution Width 20.3 H Platelet Count 141 Mean Platelet Volume 10.2 Neutrophils % 91.2 H Lymphocytes % 0.2 L Monocytes % 7.1 Eosinophils % 0.0 Basophils % 0.2 Nucleated Red Blood Cells % 8.4 H Neutrophils # (Manual) 17.7 H Lymphocytes # 0.0 L Monocytes # 1.4 H Eosinophils # 0.0 Basophils # 0.0 Nucleated Red Blood Cells # 1.6 H Sodium Level 139 Potassium Level 4.1 Chloride Level 103 Carbon Dioxide Level 21 Anion Gap 19 H Blood Urea Nitrogen 90 H Creatinine 2.38 H Glucose Level 102 Calcium Level 8.3 L Phosphorus Level 5.7 H Magnesium Level 2.6 H Test 08/02/17 04:45 08/02/17 12:16 08/02/17 17:01 Bedside Glucose 102 99 88 Medications Medications Current Medications Insulin Aspart (Novolog Insulin Pen) NOVOLOG *MILD* ALGORI... Q4 SC Last administered on 08/02/17 08:27; Admin Dose 1 UNIT; Start 07/31/17 at 13:00 Miscellaneous Information 1 ea NOTE XX ; Start 07/31/17 at 12:00 Glucose (Glutose) 15 gm Q15M PRN PO DECREASED GLUCOSE; Start 07/31/17 at 12:00 Glucose (Glutose) 22.5 gm Q15M PRN PO DECREASED GLUCOSE; Start 07/31/17 at 12:00 Dextrose (D50w Syringe) 25 ml Q15M PRN IV DECREASED GLUCOSE Last administered on 08/01/17 13:14; Admin Dose 25 ML; Start 07/31/17 at 12:00 Dextrose (D50w Syringe) 50 ml Q15M PRN IV DECREASED GLUCOSE Last administered on 07/31/17 11:47; Admin Dose 50 ML; Start 07/31/17 at 12:00 Glucagon (Glucagen) 1 mg Q15M PRN IM DECREASED GLUCOSE; Start 07/31/17 at 12:00 Glucose 15 gm 15 gm Q15M PRN BUCCAL DECREASED GLUCOSE; Start 07/31/17 at 12:00 Meropenem/Sodium Chloride (Merrem 500mg/50 ml(Pmx)) 50 ml @ 100 mls/hr Q12 IVPB Last administered on 08/02/17 08:26; Admin Dose 100 MLS/HR; Start at 21:00 Pantoprazole (Protonix Tab) 40 mg DAILY@06 PO Last administered on 08/02/17 05 :55; Admin Dose 40 MG; Start 08/01/17 at 06:00 Metoprolol Tartrate (Lopressor) 5 mg Q4H PRN IV ELEVATED HR; Start 08/01/17 at 20:00 Morphine Sulfate 2 mg 2 mg Q3H PRN IV PAIN Last administered on 08/02/17 08:26 ; Admin Dose 2 MG; Start 08/01/17 at 23:00 Amiodarone HCl 900 mg/Dextrose 500 ml @ 16.66 mls/ hr Q24H IV Last administered on 08/02/17 08:15; Admin Dose 16.66 MLS/HR; Start 08/02/17 at 10: 58; Stop 08/03/17 at 04:57 Norepinephrine 16 mg/Dextrose 500 ml @ 1.87 mls/hr TITRATE IV Last administered on 08/02/17 18:57; Admin Dose 1.87 MLS/HR; Start 08/02/17 at 12:00 Phenylephrine HCl 40 mg/Dextrose 500 ml @ 75 mls/hr TITRATE IV Last administered on 08/02/17 16:20; Admin Dose 75 MLS/HR; Start 08/02/17 at 13:00 Dopamine HCl/ Dextrose 250 ml @ 5.565 mls/ hr TITRATE IV Last administered on 08/02/17 18:43; Admin Dose 55.65 MLS/HR; Start 08/02/17 at 19:00 Vasopressin/ Dextrose (Vasostrict/D5W) 60 ml @ 0 mls/hr Q12H IV ; Start at 19:30 KASIA ACEVEDO Aug 02, 2017 19:35
== END 2017-08-02 23:00 | disposition expired | DRG 871 ==
LOC: ICU 09:58
PROVIDERS: ADMIT Internal Medicine; ATTEND Internal Medicine
PROC: 5A1945Z Respiratory Ventilation, 24-96 Consecutive Hours (ICD-10-PCS; principal; 2017-07-31)
DX: A41.9 Sepsis, unspecified organism (principal); R65.21 Severe sepsis with septic shock; G93.49 Other encephalopathy; J18.9 Pneumonia, unspecified organism; N17.9 Acute kidney failure, unspecified; J96.11 Chronic respiratory failure with hypoxia; I12.0 Hypertensive chronic kidney disease with stage 5 chronic kidney disease or end stage renal disease; N18.6 End stage renal disease; C34.90 Malignant neoplasm of unspecified part of unspecified bronchus or lung; E11.9 Type 2 diabetes mellitus without complications; Z93.0 Tracheostomy status; Z85.46 Personal history of malignant neoplasm of prostate; N18.9 Chronic kidney disease, unspecified; R13.10 Dysphagia, unspecified; Z66 Do not resuscitate; Z99.2 Dependence on renal dialysis
CPT/HCPCS: 36600; 71010; 80048; 80053; 80202; 82803; 82962; 83605; 83735; 84100; 85025; 87040; 87081; 87086; 90935; 94002; 94003; 94640; 94664; J0282; J1265; J1815; J2185; J2270; J3370; J7060; P9047